=== PATIENT | female | born 1945 | race Caucasian/White ===

== ENCOUNTER 2018-05-17 20:08 | Observation (INO) | payer MEDICARE ==
[2018-05-17] MEDS ORDERED: MORPHINE SULFATE 4 MG/ML SYRINGE IVP PRN ×2 (20:49→22:42)
[2018-05-17] MEDS ORDERED: ASPIRIN 81 MG PO STA (20:49)
--- NOTE | 2018-05-17 20:52 | ED ---
General Adult HPI - General Chief complaint: Chest Pain Stated complaint: Chest pain Time Seen by Provider: 05/17/18 20:27 Source: patient Mode of arrival: wheelchair Limitations: no limitations - Related Data Home Medications Medication Instructions Recorded Confirmed DULoxetine HCL [Cymbalta] 60 mg PO DAILY 05/17/18 05/17/18 Hydrochlorothiazide [Hydrodiuril] 25 mg PO DAILY 05/17/18 05/17/18 Losartan Potassium 100 mg PO DAILY 05/17/18 05/17/18 Omeprazole Magnesium [PriLOSEC OTC] 20 mg PO DAILY 05/17/18 05/17/18 Pravastatin Sodium [Pravachol] 40 mg PO DAILY 05/17/18 05/17/18 Allergies Allergy/AdvReac Type Severity Reaction Status Date / Time No Known Allergies Allergy Verified 05/17/18 21:05 Review of Systems ROS Statement: Those systems with pertinent positive or pertinent negative responses have been documented in the HPI. ROS Other: All systems not noted in ROS Statement are negative. Past Medical History Past Medical History: Hypertension Additional Past Medical History / Comment(s): back pain History of Any Multi-Drug Resistant Organisms: None Reported Past Surgical History: Back Surgery Past Psychological History: No Psychological Hx Reported Smoking Status: Former smoker Past Alcohol Use History: None Reported Past Drug Use History: None Reported General Exam Limitations: no limitations Course Vital Signs 05/17/18 05/17/18 20:10 20:45 Temperature 98.4 F Pulse Rate 106 H 109 H Respiratory 18 22 Rate Blood Pressure 131/80 117/77 O2 Sat by Pulse 95 95 Oximetry Medical Decision Making - Medical Decision Making Dictation was produced using [employer] dictation software. please excuse any grammatical, word or spelling errors. Chief Complaint: 72-year-old female past medical history of chronic back pain, hypertension presents with chest pressure. History of Present Illness: States that her symptoms started yesterday. She states that she's been having episodes of chest pressure left shoulder pain and left upper extremity pain. Patient states she also feels nauseous. Patient denies any cardiac history. No family history of cardiac disease. No coughing. Denies any constitutional symptoms. Patient states she's having symptoms now. Patient has history of blood clots. Denies any lower extremity symptoms. The ROS documented in this emergency department record has been reviewed and confirmed by me. Those systems with pertinent positive or negative responses have been documented in the HPI. All other systems are other negative and/or noncontributory. PHYSICAL EXAM: General Impression: Alert and oriented x3, not in acute distress HEENT: Normocephalic atraumatic, extra-ocular movements intact, pupils equal and reactive to light bilaterally, mucous membranes moist. Cardiovascular: Heart regular rate and rhythm, S1&S2 audible, no murmurs, rubs or gallops Chest: Lungs clear to auscultation bilaterally, no rhonchi, no wheeze, no rales Abdomen: Bowel sounds present, abdomen soft, non-tender, non-distended, no organomegaly Musculoskeletal: Pulses present and equal in all extremities, no peripheral edema Motor: Power 5/5 bilaterally, no focal deficits noted Neurological: CN II-XII grossly intact, no focal motor or sensory deficits noted Skin: Intact with no visualized rashes Psych: Normal affect and mood ED course: 72yo Female presents with chief complaint of chest pain. Vital signs upon arrival shows heart rate of 106, rest of vital signs within acceptable limits.Laboratory evaluation obtained. CBC, coag panel, d-dimer is negative. Metabolic panel is unremarkable. Cardiac enzymes negative. Chest x- ray unremarkable. Patient's clinical presentation concerning for atypical chest pain with typical features. Patient given aspirin. We will plan to have patient admitted for serial troponins. EKG interpretation: Ventricular rate 100, normal sinus rhythm, TX interval 1:30 , QRS 76, QTC 443. No TX prolongation, no QTC prolongation, no ST or T-wave changes noted. Overall, this EKG is unremarkable - Lab Data Result diagrams: 05/17/18 20:50 05/17/18 20:50 Lab Results 05/17/18 05/17/18 05/17/18 Range/Units 20:50 20:50 20:50 WBC 4.5 (3.8-10.6) k/uL RBC 3.88 (3.80-5.40) m/uL Hgb 11.8 (11.4-16.0) gm/dL Hct 34.0 (34.0-46.0) % MCV 87.6 (80.0-100.0) fL MCH 30.4 (25.0-35.0) pg MCHC 34.7 (31.0-37.0) g/dL RDW 13.4 (11.5-15.5) % Plt Count 68 L (150-450) k/uL Neutrophils % 42 % Lymphocytes % 50 % Monocytes % 4 % Eosinophils % 2 % Basophils % 0 % Neutrophils # 1.9 (1.3-7.7) k/uL Lymphocytes # 2.3 (1.0-4.8) k/uL Monocytes # 0.2 (0-1.0) k/uL Eosinophils # 0.1 (0-0.7) k/uL Basophils # 0.0 (0-0.2) k/uL Manual Slide Review Performed PT (9.0-12.0) sec INR (<1.2) APTT (22.0-30.0) sec D-Dimer (<0.60) mg/L FEU Sodium 139 (137-145) mmol/L Potassium 3.6 (3.5-5.1) mmol/L Chloride 103 (98-107) mmol/L Carbon Dioxide 26 (22-30) mmol/L Anion Gap 10 mmol/L BUN 16 (7-17) mg/dL Creatinine 0.72 (0.52-1.04) mg/dL Est GFR (CKD-EPI)AfAm >90 (>60 ml/min/1.73 sqM) Est GFR (CKD-EPI)NonAf 86 (>60 ml/min/1.73 sqM) Glucose 205 H (74-99) mg/dL Calcium 9.4 (8.4-10.2) mg/dL Magnesium 1.9 (1.6-2.3) mg/dL Total Bilirubin 1.1 (0.2-1.3) mg/dL AST 19 (14-36) U/L ALT 27 (9-52) U/L Alkaline Phosphatase 101 (38-126) U/L Total Creatine Kinase 34 (30-135) U/L CK-MB (CK-2) 0.2 (0.0-2.4) ng/mL CK-MB (CK-2) Rel Index 0.6 Troponin I <0.012 (0.000-0.034) ng/mL Total Protein 7.3 (6.3-8.2) g/dL Albumin 4.0 (3.5-5.0) g/dL Lipase 53 (23-300) U/L 05/17/18 Range/Units 20:50 WBC (3.8-10.6) k/uL RBC (3.80-5.40) m/uL Hgb (11.4-16.0) gm/dL Hct (34.0-46.0) % MCV (80.0-100.0) fL MCH (25.0-35.0) pg MCHC (31.0-37.0) g/dL RDW (11.5-15.5) % Plt Count (150-450) k/uL Neutrophils % % Lymphocytes % % Monocytes % % Eosinophils % % Basophils % % Neutrophils # (1.3-7.7) k/uL Lymphocytes # (1.0-4.8) k/uL Monocytes # (0-1.0) k/uL Eosinophils # (0-0.7) k/uL Basophils # (0-0.2) k/uL Manual Slide Review PT 9.9 (9.0-12.0) sec INR 0.9 (<1.2) APTT 17.9 L (22.0-30.0) sec D-Dimer 0.46 (<0.60) mg/L FEU Sodium (137-145) mmol/L Potassium (3.5-5.1) mmol/L Chloride (98-107) mmol/L Carbon Dioxide (22-30) mmol/L Anion Gap mmol/L BUN (7-17) mg/dL Creatinine (0.52-1.04) mg/dL Est GFR (CKD-EPI)AfAm (>60 ml/min/1.73 sqM) Est GFR (CKD-EPI)NonAf (>60 ml/min/1.73 sqM) Glucose (74-99) mg/dL Calcium (8.4-10.2) mg/dL Magnesium (1.6-2.3) mg/dL Total Bilirubin (0.2-1.3) mg/dL AST (14-36) U/L ALT (9-52) U/L Alkaline Phosphatase (38-126) U/L Total Creatine Kinase (30-135) U/L CK-MB (CK-2) (0.0-2.4) ng/mL CK-MB (CK-2) Rel Index Troponin I (0.000-0.034) ng/mL Total Protein (6.3-8.2) g/dL Albumin (3.5-5.0) g/dL Lipase (23-300) U/L Disposition Clinical Impression: Chest pain Disposition: ADMITTED IP TO THIS HOSP Condition: Fair Referrals: Sergio Fleming MD [Primary Care Provider] - 1-2 days Decision Time: 22:44
[2018-05-17 21:26] LABS: Basophils % (A) 0 %; Eosinophils # (A) 0.1 k/uL (0-0.7); Eosinophils % (A) 2 %; HGB 11.8 gm/dL (11.4-16.0); Lymphocytes # (A) 2.3 k/uL (1.0-4.8); Lymphocytes % (A) 50 %; MCH 30.4 pg (25.0-35.0); MCHC 34.7 g/dL (31.0-37.0); MCV 87.6 fL (80.0-100.0); Mean Platelet Volume 6.7; Monocytes # (A) 0.2 k/uL (0-1.0); Monocytes % (A) 4 %; Neutrophils # (A) 1.9 k/uL (1.3-7.7); Neutrophils % (A) 42 %; RBC 3.88 m/uL (3.80-5.40); RDW 13.4 % (11.5-15.5); WBC 4.5 k/uL (3.8-10.6)
[2018-05-17 21:36] LABS: Creatine Kinase 34 U/L (30-135)
[2018-05-17 21:37] LABS: ALT 27 U/L (9-52); AST 19 U/L (14-36); Alkaline Phosphatase 101 U/L (38-126); Anion Gap 10 mmol/L; Blood Urea Nitrogen 16 mg/dL (7-17); Calcium 9.4 mg/dL (8.4-10.2); Carbon Dioxide 26 mmol/L (22-30); Chloride 103 mmol/L (98-107); Glucose 205 mg/dL (74-99); Lipase 53 U/L (23-300); Magnesium 1.9 mg/dL (1.6-2.3); Potassium 3.6 mmol/L (3.5-5.1); Sodium 139 mmol/L (137-145); Total Bilirubin 1.1 mg/dL (0.2-1.3); Total Protein 7.3 g/dL (6.3-8.2)
[2018-05-17 21:42] LABS: D-Dimer 0.46 mg/L FEU (<0.60); INR 0.9 (<1.2); Prothrombin Time 9.9 sec (9.0-12.0)
--- NOTE | 2018-05-17 21:42 | XR ---
EXAMINATION TYPE: XR chest 2V DATE OF EXAM: 05/17/2018 COMPARISON: NONE HISTORY: Chest pain TECHNIQUE: Frontal and lateral views of the chest are obtained. FINDINGS: Heart and mediastinum are normal. Lungs are clear of infiltrate. There is posterior fusion surgery at the thoracolumbar junction. There is neuro stimulator in the mid thoracic spine. There is no heart failure. There is no pleural effusion. IMPRESSION: No active cardiopulmonary disease. Normal heart. Minimal pleural thickening noted at the right lung apex.
[2018-05-17 21:50] LABS: Creatine Kinase MB 0.2 ng/mL (0.0-2.4); Troponin I <0.012 ng/mL (0.000-0.034)
[2018-05-17 21:54] LABS: Platelet Count 68 k/uL (150-450)
[2018-05-17 22:24] LABS: Partial Thromboplastin Time 17.9 sec (22.0-30.0)
[2018-05-17] MEDS ORDERED: NITROGLYCERIN SL TABS 0.4 MG TAB SUBLINGUAL PRN (22:46)
--- NOTE | 2018-05-18 00:40 | P.HPIM ---
History of Present Illness H&P Date: 05/17/18 Chief Complaint: Chest pain 72-year-old female with history of hypertension And back surgery. Patient presented with a complaint of left-sided chest pain radiating to the left shoulder and left arm. Pain started yesterday all of a sudden with no precipitating factors. Patient denies any history of anginal pain or any coronary artery disease. Pain initially was started was localized to the left chest and neck and then pain persisted all day ranging between 5-10 out of 10 in severity toward the night pain persisted and became worse when patient was laying down thus she preferred sitting up to get some comfort. Denies any associated orthopnea or paroxysmal maternal dyspnea denies any associated sweating or palpitations. This morning she felt that the pain has been radiating to the left arm and became associated with nausea and some dizziness and feeling dizzy and weak. Thus she decided to come and seek medical attention. Physical activity does not make the pain worse and actually pain gets worse when she lays down. She also reported some numbness in her left hand that has since gone otherwise patient denies any GI bleeding abdominal pain and vomiting fevers chills coughing or any trouble breathing. In the ED her EKG showed no acute ST changes, troponins are negative. Patient admitted for atypical chest pain to monitor and trend troponins Review of Systems Pertinent positives as noted in HPI. All other systems were reviewed and are negative Past Medical History Past Medical History: Hypertension Additional Past Medical History / Comment(s): back pain History of Any Multi-Drug Resistant Organisms: None Reported Past Surgical History: Back Surgery Past Psychological History: No Psychological Hx Reported Smoking Status: Former smoker Past Alcohol Use History: None Reported Past Drug Use History: None Reported Medications and Allergies Home Medications Medication Instructions Recorded Confirmed Type DULoxetine HCL [Cymbalta] 60 mg PO DAILY 05/17/18 05/17/18 History Hydrochlorothiazide [Hydrodiuril] 25 mg PO DAILY 05/17/18 05/17/18 History Losartan Potassium 100 mg PO DAILY 05/17/18 05/17/18 History Omeprazole Magnesium [PriLOSEC OTC] 20 mg PO DAILY 05/17/18 05/17/18 History Pravastatin Sodium [Pravachol] 40 mg PO DAILY 05/17/18 05/17/18 History Allergies Allergy/AdvReac Type Severity Reaction Status Date / Time No Known Allergies Allergy Verified 05/17/18 21:05 Physical Exam Vitals: Vital Signs Temp Pulse Resp BP Pulse Ox 05/17/18 23:05 85 18 107/61 95 05/17/18 22:00 91 18 109/65 95 05/17/18 20:45 109 H 22 117/77 95 05/17/18 20:10 98.4 F 106 H 18 131/80 95 Intake and Output 05/17/18 05/17/18 05/18/18 14:59 22:59 06:59 Other: Weight 88.451 kg Constitutional: No acute distress, conversant, pleasant Eyes: Anicteric sclerae, moist conjunctiva, no lid-lag Pupils equal round reactive to light ENMT: NC/AT Oropharynx clear, no erythema, exudates Neck: Supple, FROM, no masses, or JVD No carotid bruits No thyromegaly Lungs: Clear to auscultation Clear to percussion Normal respiratory effort, no accessory muscle use Cardiovascular: Heart regular in rate and rhythm, No murmurs, gallops, or rubs trace peripheral edema Abdominal: Soft Nontender, no guarding, rebound or rigidity Abdomen moving with respiration Normoactive bowel sounds No hepatomegaly, No splenomegaly No palpable mass No abdominal wall hernia noted Skin: Normal temperature, tone, texture, turgor No induration No subcutaneous nodules No rash, lesions No ulcers Extremities: No digital cyanosis No clubbing Pedal pulses intact and symmetrical Radial pulses intact and symmetrical No calf tenderness Psychiatric: Alert and oriented to person, place and time Appropriate affect fair judgment Neuro Muscles Strength 5/5 in all 4 extremities Sensation to light touch grossly present throughout Cranial nerves II-XII grossly intact No focal sensory deficits Lymphatics: no palpable cervical or supraclavicular , or inguinal lymph nodes Results CBC & Chem 7: 05/17/18 20:50 05/17/18 20:50 Labs: Abnormal Lab Results - Last 24 Hours (Table) 05/17/18 05/17/18 05/17/18 Range/Units 20:50 20:50 20:50 Plt Count 68 L (150-450) k/uL APTT 17.9 L (22.0-30.0) sec Glucose 205 H (74-99) mg/dL Assessment and Plan Assessment: 72-year-old female with history of hypertension and back surgery admitted as observation with anticipated length of stay less than 48 hours due to atypical chest pain to rule out ACS Plan: atypical chest pain , rule out ACS monitor cardiac tele and vital signs trend cardiac enzymes ASA, Statin EKG no acute changes bed rest pain control nitro prn Hypertension controlled continue home meds DVT PPX heparin sc tid RBC microcytosis without anemia outpatient follow up with PCP HIstory of back surgery follow up with ortho Dr. Rizvi as scheduled pain control Surrogate decision-maker Shanika granddaughter CODE STATUS:No code Discussed with: Patient, ER Anticipated discharge: <[address]: Home A total of 55 minutes was spent on the care of this complex patient more than 50 % of the time was spent in counseling and care coordination.
[2018-05-18] MEDS: KETOROLAC 30 MG/ML 1 ML VIAL IVP SCH ×3 (00:54→11:27)
[2018-05-18 03:27] LABS: Cholesterol 124 mg/dL (<200); HDL Cholesterol 30 mg/dL (40-60); LDL Cholesterol,Calculated 43 mg/dL (0-99); Triglycerides 256 mg/dL (<150)
[2018-05-18 03:28] LABS: Creatine Kinase 29 U/L (30-135)
[2018-05-18 03:41] LABS: Creatine Kinase MB <0.2 ng/mL (0.0-2.4); Troponin I <0.012 ng/mL (0.000-0.034)
[2018-05-18 07:29] VITALS: RESP 18
[2018-05-18] MEDS ORDERED: PANTOPRAZOLE 40 MG TABLET PO SCH (07:30)
[2018-05-18] MEDS ORDERED: HEPARIN SODIUM,PORCINE 5,000 UNIT/ML 1 ML VIAL SQ SCH (08:00)
[2018-05-18] MEDS ORDERED: HYDROCHLOROTHIAZIDE 25 MG TAB PO SCH (09:00)
[2018-05-18] MEDS ORDERED: LOSARTAN 50 MG TAB PO SCH (09:00)
[2018-05-18] MEDS ORDERED: ASPIRIN 325 MG TAB PO SCH (09:00)
[2018-05-18] MEDS ORDERED: PRAVASTATIN SODIUM 40 MG TAB PO SCH (09:00)
[2018-05-18] MEDS ORDERED: DULoxetine HCL 60 MG CAPSULE.DR PO SCH (09:00)
[2018-05-18] MEDS ORDERED: DOBUTamine DRIP for NUC MED 500 MG in DEXTROSE/WATER 1 250ML.BAG IV ONE (09:01)
--- NOTE | 2018-05-18 10:02 | P.CRDCN ---
History of Present Illness History of present illness: This is a pleasant 72-year-old female past medical history significant for hypertension, dyslipidemia, nicotine dependence. She denies history of coronary artery disease and is never seen a elevator serviceman for any reason. We've asked him in consultation for symptoms chest discomfort. She states Wednesday while she was at home sitting down she started feeling a heavy sensation in the left precordial region with radiation into the left shoulder, left neck and left jaw. The left arm felt heavy and tingly. The symptoms were rather persistent throughout the day Wednesday and were associated with some dizziness and nausea. She is recently seen her primary care physician and her blood pressure medications were increased by double for an elevated blood pressure while in the office. Upon arrival to the ED she was still having the pain. She was given aspirin and morphine. This relieved her pain almost entirely. She does continue to feel a dull ache in the left shoulder. Not worse with movement of her torso, arm or shoulder. Not worse with exertion. She denies shortness of breath, palpitations, nausea, vomiting or diaphoresis. EKG reveals sinus mechanism with no acute ST or T wave abnormalities noted 2. Chest x-ray is negative for acute cardiopulmonary process. Laboratory data reviewed, cardiac enzymes negative 2, LDL 43. Current cardiac medications include pravastatin 40 mg daily, losartan 100 mg daily and nitro chlorothiazide 25 mg daily. At the time of my exam: CONSTITUTIONAL: Denies fever. Denies chills. EYES: Denies blurred vision. Denies vision changes. Denies eye pain. EARS, NOSE, MOUTH & THROAT: Denies headache. Denies sore throat. Denies ear pain. CARDIOVASCULAR: Denies chest pain. Denies shortness of breath. Denies orthopnea. Denies PND. Denies palpitations. RESPIRATORY: Denies cough. GASTROINTESTINAL: Denies abdominal pain. Denies diarrhea. Denies constipation. Denies nausea. Denies vomiting. MUSCULOSKELETAL: Denies myalgias. INTEGUMENTARY: Denies pruitis. Denies rash. NEUROLOGIC: Denies numbness. Denies tingling. Denies weakness. PSYCHIATRIC: Denies anxiety. Denies depression. ENDOCRINE: Denies fatigue. Denies weight change. Denies polydipsia. Denies polyurina. GENITOURINARY: Denies burning, hematuria or urgency with micturation. HEMATOLOGIC: Denies history of anemia. Denies bleeding. Blood pressure 96/61 heart rate 84 afebrile maintaining oxygen saturation on room air GENERAL: This is a 72-year-old female in no apparent distress at the time of my examination. HEENT: Head is atraumatic, normocephalic. Pupils are equal, round. Sclerae anicteric. Conjunctivae are clear. Mucous membranes of the mouth are moist. Neck is supple. There is no jugular venous distention. No carotid bruit is heard. LUNGS: Clear to auscultation no wheezes, rales or rhonchi. No chest wall tenderness is noted on palpation or with deep breathing. HEART: Regular rate and rhythm without murmurs, rubs or gallops. S1 and S2 heard. ABDOMEN: Soft, nontender. Bowel sounds are heard. No organomegaly noted. EXTREMITIES: No evidence of peripheral edema and no calf tenderness noted. VASCULAR: Radial and dorsalis pedis pulses palpated, no evidence of clubbing. NEUROLOGIC: Patient is awake, alert and oriented x3. ASSESSMENT Chest pain, atypical. An acute coronary event has been ruled out. Hypertension Dyslipidemia Thrombocytopenia Chronic back pain PLAN Obtain 2D echocardiogram and doppler study to assess cardiac structure and function. Perform dobutamine stress echocardiogram to assess for stress induced ischemia. Recommend discontinuation of hydrochlorothiazide for blood pressures on the low side since admission. This could the cause of her dizziness. Advised her to obtain a blood pressure cuff for home and check her pressures daily and keep a log. If stress test is normal she is stable from a cardiac perspective. Follow up with Dr. Sanchez in 2-3 weeks for ongoing blood pressure management. Thank you kindly for this consultation. Nurse Practitioner note has been reviewed, I agree with a documented findings and plan of care. Patient was seen and examined. Past Medical History Past Medical History: Hypertension Additional Past Medical History / Comment(s): back pain History of Any Multi-Drug Resistant Organisms: None Reported Past Surgical History: Back Surgery Past Psychological History: No Psychological Hx Reported Smoking Status: Former smoker Past Alcohol Use History: None Reported Past Drug Use History: None Reported Medications and Allergies Home Medications Medication Instructions Recorded Confirmed Type DULoxetine HCL [Cymbalta] 60 mg PO DAILY 05/17/18 05/17/18 History Hydrochlorothiazide [Hydrodiuril] 25 mg PO DAILY 05/17/18 05/17/18 History Losartan Potassium 100 mg PO DAILY 05/17/18 05/17/18 History Omeprazole Magnesium [PriLOSEC OTC] 20 mg PO DAILY 05/17/18 05/17/18 History Pravastatin Sodium [Pravachol] 40 mg PO DAILY 05/17/18 05/17/18 History Allergies Allergy/AdvReac Type Severity Reaction Status Date / Time No Known Allergies Allergy Verified 05/17/18 21:05 Physical Exam Vitals: Vital Signs Temp Pulse Pulse Resp BP BP BP 05/18/18 07:27 98.3 F 76 18 109/70 05/18/18 03:54 84 16 05/18/18 03:49 98.4 F 84 16 96/61 05/18/18 00:09 16 05/18/18 00:00 98.4 F 81 16 104/68 05/17/18 23:56 98.1 F 81 16 110/66 05/17/18 23:05 85 18 107/61 05/17/18 22:00 91 18 109/65 05/17/18 20:45 109 H 22 117/77 05/17/18 20:10 98.4 F 106 H 18 131/80 Pulse Ox 05/18/18 07:27 95 05/18/18 03:54 05/18/18 03:49 97 05/18/18 00:09 05/18/18 00:00 96 05/17/18 23:56 95 05/17/18 23:05 95 05/17/18 22:00 95 05/17/18 20:45 95 05/17/18 20:10 95 Intake and Output 05/17/18 05/18/18 05/18/18 22:59 06:59 14:59 Intake Total 0 Balance 0 Intake: Oral 0 Other: Weight 88.451 kg Results 05/17/18 20:50 05/17/18 20:50 Cardiac Enzymes 05/17/18 05/17/18 05/18/18 Range/Units 20:50 20:50 03:04 AST 19 (14-36) U/L CK-MB (CK-2) 0.2 <0.2 (0.0-2.4) ng/mL Troponin I <0.012 <0.012 (0.000-0.034) ng/mL Coagulation 01/29/19 Range/Units 20:50 PT 9.9 (9.0-12.0) sec APTT 17.9 L (22.0-30.0) sec Lipids 05/18/18 Range/Units 03:04 Triglycerides 256 H (<150) mg/dL Cholesterol 124 (<200) mg/dL HDL Cholesterol 30 L (40-60) mg/dL CBC 05/17/18 Range/Units 20:50 WBC 4.5 (3.8-10.6) k/uL RBC 3.88 (3.80-5.40) m/uL Hgb 11.8 (11.4-16.0) gm/dL Hct 34.0 (34.0-46.0) % Plt Count 68 L (150-450) k/uL Comprehensive Metabolic Panel 05/17/18 Range/Units 20:50 Sodium 139 (137-145) mmol/L Potassium 3.6 (3.5-5.1) mmol/L Chloride 103 (98-107) mmol/L Carbon Dioxide 26 (22-30) mmol/L BUN 16 (7-17) mg/dL Creatinine 0.72 (0.52-1.04) mg/dL Glucose 205 H (74-99) mg/dL Calcium 9.4 (8.4-10.2) mg/dL AST 19 (14-36) U/L ALT 27 (9-52) U/L Alkaline Phosphatase 101 (38-126) U/L Total Protein 7.3 (6.3-8.2) g/dL Albumin 4.0 (3.5-5.0) g/dL Current Medications Generic Name Dose Route Start Last Admin Trade Name Freq PRN Reason Stop Dose Admin Aspirin 325 mg 05/18/18 09:00 Aspirin PO DAILY [facility] Duloxetine HCl 60 mg 05/18/18 09:00 Cymbalta PO DAILY [facility] Hydrochlorothiazide 25 mg 05/18/18 09:00 Hydrodiuril PO DAILY [facility] Ketorolac Tromethamine 15 mg 05/18/18 00:30 05/18/18 05:34 Toradol IVP 05/22/18 00:29 15 mg Q6HR NAVYA Administration Losartan Potassium 100 mg 05/18/18 09:00 Cozaar PO DAILY [facility] Morphine Sulfate 2 mg 05/17/18 20:49 05/17/18 20:56 Morphine Sulfate (Inj) IVP 2 mg ONCE PRN Administration Pain Morphine Sulfate 4 mg 05/17/18 22:42 Morphine Sulfate (Inj) IVP ONCE PRN Pain Nitroglycerin 0.4 mg 05/17/18 22:46 Nitrostat SUBLINGUAL Q5M PRN Chest Pain Pantoprazole Sodium 40 mg 05/18/18 07:30 Protonix PO AC-[id number] NAVYA Pravastatin Sodium 40 mg 05/18/18 09:00 Pravachol PO DAILY [facility] Intake and Output 05/17/18 05/18/18 05/18/18 22:59 06:59 14:59 Intake Total 0 Balance 0 Intake: Oral 0 Other: Weight 88.451 kg 05/17/18 20:50 05/17/18 20:50
--- NOTE | 2018-05-18 10:08 | P.CRDCN ---
History of Present Illness History of present illness: Patient reviewed and examined She's been complaining of left pectoral left shoulder discomfort that radiates into the neck and to the arm, lasted for several hours, normal cardiac enzymes normal ECG Takes losartan and hydrochlorothiazide and Pravachol 40 mrem daily Dose of losartan and hydrochlorothiazide was recently doubled. Blood pressure is low normal Suggest Stop hydrochlorothiazide, continue 100 mg of losartan, watch blood pressure Continue Pravachol Dobutamine stress echo to evaluate for ischemia Past Medical History Past Medical History: Hypertension Additional Past Medical History / Comment(s): back pain History of Any Multi-Drug Resistant Organisms: None Reported Past Surgical History: Back Surgery Past Psychological History: No Psychological Hx Reported Smoking Status: Former smoker Past Alcohol Use History: None Reported Past Drug Use History: None Reported Medications and Allergies Home Medications Medication Instructions Recorded Confirmed Type DULoxetine HCL [Cymbalta] 60 mg PO DAILY 05/17/18 05/17/18 History Hydrochlorothiazide [Hydrodiuril] 25 mg PO DAILY 05/17/18 05/17/18 History Losartan Potassium 100 mg PO DAILY 05/17/18 05/17/18 History Omeprazole Magnesium [PriLOSEC OTC] 20 mg PO DAILY 05/17/18 05/17/18 History Pravastatin Sodium [Pravachol] 40 mg PO DAILY 05/17/18 05/17/18 History Allergies Allergy/AdvReac Type Severity Reaction Status Date / Time No Known Allergies Allergy Verified 05/17/18 21:05 Physical Exam Vitals: Vital Signs Temp Pulse Pulse Resp BP BP BP 05/18/18 09:30 05/18/18 08:00 18 05/18/18 07:27 98.3 F 76 18 109/70 05/18/18 03:54 84 16 05/18/18 03:49 98.4 F 84 16 96/61 05/18/18 00:09 16 05/18/18 00:00 98.4 F 81 16 104/68 05/17/18 23:56 98.1 F 81 16 110/66 05/17/18 23:05 85 18 107/61 05/17/18 22:00 91 18 109/65 05/17/18 20:45 109 H 22 117/77 05/17/18 20:10 98.4 F 106 H 18 131/80 Pulse Ox 05/18/18 09:30 94 L 05/18/18 08:00 05/18/18 07:27 95 05/18/18 03:54 05/18/18 03:49 97 05/18/18 00:09 05/18/18 00:00 96 05/17/18 23:56 95 05/17/18 23:05 95 05/17/18 22:00 95 05/17/18 20:45 95 05/17/18 20:10 95 Intake and Output 05/17/18 05/18/18 05/18/18 22:59 06:59 14:59 Intake Total 0 Balance 0 Intake: Oral 0 Other: Weight 88.451 kg Results 05/17/18 20:50 05/17/18 20:50 Cardiac Enzymes 05/17/18 05/17/18 05/18/18 Range/Units 20:50 20:50 03:04 AST 19 (14-36) U/L CK-MB (CK-2) 0.2 <0.2 (0.0-2.4) ng/mL Troponin I <0.012 <0.012 (0.000-0.034) ng/mL Coagulation 05/17/18 Range/Units 20:50 PT 9.9 (9.0-12.0) sec APTT 17.9 L (22.0-30.0) sec Lipids 05/18/18 Range/Units 03:04 Triglycerides 256 H (<150) mg/dL Cholesterol 124 (<200) mg/dL HDL Cholesterol 30 L (40-60) mg/dL CBC 05/17/18 Range/Units 20:50 WBC 4.5 (3.8-10.6) k/uL RBC 3.88 (3.80-5.40) m/uL Hgb 11.8 (11.4-16.0) gm/dL Hct 34.0 (34.0-46.0) % Plt Count 68 L (150-450) k/uL Comprehensive Metabolic Panel 05/17/18 Range/Units 20:50 Sodium 139 (137-145) mmol/L Potassium 3.6 (3.5-5.1) mmol/L Chloride 103 (98-107) mmol/L Carbon Dioxide 26 (22-30) mmol/L BUN 16 (7-17) mg/dL Creatinine 0.72 (0.52-1.04) mg/dL Glucose 205 H (74-99) mg/dL Calcium 9.4 (8.4-10.2) mg/dL AST 19 (14-36) U/L ALT 27 (9-52) U/L Alkaline Phosphatase 101 (38-126) U/L Total Protein 7.3 (6.3-8.2) g/dL Albumin 4.0 (3.5-5.0) g/dL Current Medications Generic Name Dose Route Start Last Admin Trade Name Freq PRN Reason Stop Dose Admin Duloxetine HCl 60 mg 05/18/18 09:00 Cymbalta PO DAILY [facility] Dobutamine HCl/Dextrose 500 mg 250 mls @ 26.53 mls/hr 05/18/18 09:01 / IV Solution IV 05/18/18 18:26 .[id number] ONE Protocol 10 MCG/KG/MIN Ketorolac Tromethamine 15 mg 05/18/18 00:30 05/18/18 05:34 Toradol IVP 05/22/18 00:29 15 mg Q6HR NAVYA Administration Losartan Potassium 100 mg 05/18/18 09:00 Cozaar PO DAILY [facility] Morphine Sulfate 2 mg 05/17/18 20:49 05/17/18 20:56 Morphine Sulfate (Inj) IVP 2 mg ONCE PRN Administration Pain Morphine Sulfate 4 mg 05/17/18 22:42 Morphine Sulfate (Inj) IVP ONCE PRN Pain Nitroglycerin 0.4 mg 05/17/18 22:46 Nitrostat SUBLINGUAL Q5M PRN Chest Pain Pantoprazole Sodium 40 mg 05/18/18 07:30 Protonix PO AC-BRKFST [facility] Pravastatin Sodium 40 mg 05/18/18 09:00 Pravachol PO DAILY [facility] Intake and Output 05/17/18 05/18/18 05/18/18 22:59 06:59 14:59 Intake Total 0 Balance 0 Intake: Oral 0 Other: Weight 88.451 kg 05/17/18 20:50 05/17/18 20:50
[2018-05-18 11:38] VITALS: BP 122/74; PULSE 87; TEMP 98.2
--- NOTE | 2018-05-18 11:44 | ECHOF ---
Referral Reason:cp MEASUREMENTS -------- HEIGHT: 165.1 cm WEIGHT: 88.5 kg BP: 109/70 RVIDd: 2.9 cm (< 3.3) IVSd: 1.0 cm (0.6 - 1.1) LVIDd: 4.1 cm (3.9 - 5.3) LVPWd: 1.0 cm (0.6 - 1.1) IVSs: 1.6 cm LVIDs: 2.7 cm LVPWs: 1.3 cm LA Diam: 3.2 cm (2.7 - 3.8) LAESV Index (A-L): 21.81 ml/m Ao Diam: 3.3 cm (2.0 - 3.7) AV Cusp: 2.3 cm (1.5 - 2.6) EPSS: 0.3 cm MV E Kaiser: 0.73 m/s MV DecT: 231 ms MV A Kaiser: 0.87 m/s MV E/A Ratio: 0.84 RAP: 5.00 mmHg RVSP: 19.57 mmHg MV EF SLOPE: 120.78 mm/s (70 - 150) MV EXCURSION: 1.77 cm (> 18.000) FINDINGS -------- Sinus rhythm. This was a technically good study. The left ventricular size is normal. Left ventricular wall thickness is normal. Overall left vent ricular systolic function is normal with, an EF between 60 - 65 %. The right ventricle is normal in size. Normal LA size by volume 22+/-6 ml/m2. The right atrium is normal in size. The aortic valve is trileaflet and appears structurally normal. There is trace to mild mitral regurgitation. Mild tricuspid regurgitation present. Right ventricular systolic pressure is normal at < 35 mmHg. Trace/mild (physiologic) pulmonic regurgitation. The aortic root size is normal. Normal inferior vena cava with normal inspiratory collapse consistent with estimated right atrial pre ssure of 5 mmHg. There is no pericardial effusion. CONCLUSIONS -------- 1. Sinus rhythm. 2. This was a technically good study. 3. The left ventricular size is normal. 4. Left ventricular wall thickness is normal. 5. Overall left ventricular systolic function is normal with, an EF between 60 - 65 %. 6. The right ventricle is normal in size. 7. Normal LA size by volume 22+/-6 ml/m2. 8. The right atrium is normal in size. 9. The aortic valve is trileaflet and appears structurally normal. 10. There is trace to mild mitral regurgitation. 11. Mild tricuspid regurgitation present. 12. Right ventricular systolic pressure is normal at < 35 mmHg. 13. Trace/mild (physiologic) pulmonic regurgitation. 14. The aortic root size is normal. 15. Normal inferior vena cava with normal inspiratory collapse consistent with estimated right atrial pressure of 5 mmHg. 16. There is no pericardial effusion. [employer] SALES ASSISTANT: VANESSA Sellers
--- NOTE | 2018-05-18 12:54 | P.DS ---
Providers Date of admission: 05/17/18 22:44 Expected date of discharge: 05/18/18 Attending physician: Grace Medrano MD Consults: 05/17/18 23:42 Consult Physician Routine Consulting Provider: Adela Mistry Consult Reason/Comments: chest pain Do you want consulting provider notified?: Yes, Notify in am Primary care physician: [facility] Course: 72-year-old female with history of hypertension And back surgery. Patient presented with a complaint of left-sided chest pain radiating to the left shoulder and left arm. Pain started yesterday all of a sudden with no precipitating factors. Patient denies any history of anginal pain or any coronary artery disease. Pain initially was started was localized to the left chest and neck and then pain persisted all day ranging between 5-10 out of 10 in severity toward the night pain persisted and became worse when patient was laying down thus she preferred sitting up to get some comfort. Denies any associated orthopnea or paroxysmal maternal dyspnea denies any associated sweating or palpitations. This morning she felt that the pain has been radiating to the left arm and became associated with nausea and some dizziness and feeling dizzy and weak. Thus she decided to come and seek medical attention. Physical activity does not make the pain worse and actually pain gets worse when she lays down. She also reported some numbness in her left hand that has since gone otherwise patient denies any GI bleeding abdominal pain and vomiting fevers chills coughing or any trouble breathing. With regard to her chest pain, troponin was less than 0.0122 with EKG showing normal sinus rhythm. Echocardiogram was done which showed an ejection fraction of 60-65% with normal wall motions. Cardiology was consulted and recommended stress test. Stress test was negative. Patient was seen and examined prior to discharge. No acute events overnight. Patient reports complete resolution of her chest pain. She is looking for to going home. General: [no distress], [appears at stated age] Derm: [warm], [dry] Head: [atraumatic], [normocephalic], [symmetric] Eyes: [EOMI], [no lid lag], [anicteric sclera] Mouth: [no lip lesion], [mucus membranes moist] Cardiovascular: [S1S2 reg], [no murmur], [positive posterior tibial pulse bilateral], Lungs: [CTA bilateral], [no rhonchi, no rales] , [no accessory muscle use] Abdominal: [soft], [ nontender to palpation], [no guarding], [no appreciable organomegaly] Ext: [no gross muscle atrophy], [no edema], [no contractures] Neuro: [no focal neuro deficits] Psych: [Alert], [oriented], [appropriate affect] Assessment and Plan 1. Chest pain 2. Hypertension 3. Thrombocytopenia Acute coronary syndrome has been ruled out. Troponins have been negative 2, echocardiogram and stress test are both within normal limits. Lipid panel shows an elevated triglyceride at 256 and a decreased HDL at 30. Patient has been instructed by cardiology to discontinue hydrochlorothiazide and continue losartan 100 mg by mouth daily. Patient has been advised to follow-up with her primary care provider within 1-2 days of discharge. Patient was advised follow- up with cardiology Dr. Sanchez within 3 weeks of discharge. Pertinent Studies: Chest x-ray Echocardiogram Stress test Patient Condition at Discharge: Stable Plan - Discharge Summary New Discharge Prescriptions: Continue Pravastatin Sodium [Pravachol] 40 mg PO DAILY Losartan Potassium 100 mg PO DAILY DULoxetine HCL [Cymbalta] 60 mg PO DAILY Omeprazole Magnesium [PriLOSEC OTC] 20 mg PO DAILY Discontinued Hydrochlorothiazide [Hydrodiuril] 25 mg PO DAILY Discharge Medication List DULoxetine HCL [Cymbalta] 60 mg PO DAILY 05/17/18 [History] Losartan Potassium 100 mg PO DAILY 05/17/18 [History] Omeprazole Magnesium [PriLOSEC OTC] 20 mg PO DAILY 05/17/18 [History] Pravastatin Sodium [Pravachol] 40 mg PO DAILY 05/17/18 [History] Follow up Appointment(s)/Referral(s): Shravan Sanchez MD [STAFF PHYSICIAN] - 3 Weeks Sergio Fleming MD [Primary Care Provider] - 1-2 days Activity/Diet/Wound Care/Special Instructions: Diet: HEART healthy Please follow-up with her primary care provider within 1-2 days of discharge. Please follow-up with your edge kitter within 3 weeks of discharge. Discharge Disposition: HOME SELF-CARE
--- NOTE | 2018-05-19 22:14 | ECHOS ---
STRESS ECHOCARDIOGRAM INDICATIONS: MEDICATIONS: Pravastatin, sodium, losartan, potassium, hydrochlorothiazide, omeprazole, duloxetine BASELINE HEART RATE: 73 BASELINE BLOOD PRESSURE: 118/72 MAXIMUM HEART RATE: 129 MAXIMUM BLOOD PRESSURE: 220/35 85% MPHR: 128 100% MPHR: 150 METS: MAXIMUM STAGE REACHED: TOTAL EXERCISE TIME: 7:30 CLINICAL INFORMATION: This is a dobutamine stress echo. Baseline heart rate 73 beats per minute. Baseline blood pressure 118/72 mmHg. The patient received dobutamine infusion per protocol. Peak heart rate 129 beats per minute. Peak blood pressure 220 systolic. Baseline 12- lead ECG shows normal sinus rhythm with normal cardiac intervals, normal ST segments. There was no ECG evidence for ischemia. No arrhythmias noted. The baseline 2D echo images showed normal LV size and systolic function without segmental wall motion abnormalities. With dobutamine infusion, there was a stepwise increment in overall LV contractility without development of any wall motion abnormalities. At recovery, regional global LV systolic function remained normal. IMPRESSION: No ECG or echocardiographic evidence for ischemia during dobutamine stress echo. MMODL / IJN: [id number] /
== END 2018-05-18 13:43 | disposition home or self-care (01) ==
LOC: EC 20:08 → 1SOBS 22:44
PROVIDERS: ADMIT Internal Medicine; ATTEND Internal Medicine
DX: R07.89 Other chest pain (principal); R11.0 Nausea; R42 Dizziness and giddiness; R53.1 Weakness; D69.6 Thrombocytopenia, unspecified; I10 Essential (primary) hypertension; E78.5 Hyperlipidemia, unspecified; Z86.718 Personal history of other venous thrombosis and embolism; Z98.890 Other specified postprocedural states; G89.29 Other chronic pain; M54.9 Dorsalgia, unspecified; Z87.891 Personal history of nicotine dependence; Z79.899 Other long term (current) drug therapy
CPT/HCPCS: 96374; 96375; 96376; 99285; 36415; 93005; 93306; 93351; 85379; 80061; 80053; 82550 ×2; 82553 ×2; 83690; 83735; 84484 ×2; 85025; 85610; 85730; 71046; G0378 ×2; J1250; J2270; J1885

== ENCOUNTER → 2018-05-23 | Outpatient (CLI) | payer MEDICARE ==
--- NOTE | 2018-05-23 14:03 | CT ---
EXAMINATION TYPE: CT lumbar spine wo con DATE OF EXAM: 05/23/2018 1:49 PM COMPARISON: HISTORY: Postlaminectomy back pain. Left hip pain. CT DLP: 1434.2 mGycm Automated exposure control for dose reduction was used. TECHNIQUE: Unenhanced CT of the lumbar spine was performed. Bone and soft tissue window settings are submitted as well as coronal and sagittal reconstructions. FINDINGS: There is diffuse osseous demineralization. There is a levoscoliotic curvature of the lumbar spine and very mild compression deformity of the L1 vertebral body. There are flowing bridging anter ior osteophytes. Postsurgical changes seen from T11 through S1 as well as of the sacroiliac joints wi th resection of the posterior elements, pedicular screws and fixation rods. Anterior vertebral body s crews are also seen of L5-S1, L3, and L4. Intervertebral disc spacers are present at L4-L5 and L5-S1. Near complete osseous fusion is seen at L2-L3, L3-L4, L4-5 and L5-S1. Extensive heterotopic ossifica tion and facet arthropathy are noted of the lower lumbar spine. There is postsurgical change at the gastroesophageal junction. Moderate atherosclerosis of the abdomi nal aorta and its branches. Numerous sigmoid diverticula are partially visualized. Cholelithiasis is seen. Mild hepatic steatosis is noted. Nerve stimulator is seen within the right gluteal soft tissues . The entrance point of this nerve stimulator is not visualized as it appears to be within the thorac ic spine. Although there is postsurgical change limiting evaluation of the neural foramen there appears to be n eural foraminal narrowing at L5-S1 on the left that is overall moderate. The remainder of the neural foramen are grossly patent on CT. There also appears to be mild spinal canal stenosis at L4-L5 due to facet arthropathy and ligamentum flavum hypertrophy. IMPRESSION: 1. Extensive postsurgical change of the thoracolumbar spine and sacroiliac joints. Multilevel osseous fusion is seen at although there is limited visualization due to extensive surgical hardware there a ppears to be mild spinal canal stenosis at L4-L5 and moderate neural foraminal narrowing at L5-S1 on the left. 2. Levoscoliosis of the lumbar spine and partially visualized dextroscoliosis of the thoracic spine. 3. Generalized osseous demineralization.
== END | disposition home or self-care (01) ==
LOC: RADCTMAIN 13:25
DX: M48.07 Spinal stenosis, lumbosacral region (principal); M41.86 Other forms of scoliosis, lumbar region; M81.0 Age-related osteoporosis without current pathological fracture; Z98.1 Arthrodesis status; Z98.890 Other specified postprocedural states
CPT/HCPCS: 72131

== ENCOUNTER → 2018-09-16 | Outpatient (CLI) | payer MEDICARE ==
--- NOTE | 2018-09-16 14:35 | CT ---
EXAMINATION TYPE: CT cervical spine wo con DATE OF EXAM: 09/16/2018 COMPARISON: None HISTORY: headaches CT DLP: 604 mGycm Automated exposure control for dose reduction was used. TECHNIQUE: CT scan of the cervical spine is obtained without contrast, axial images are obtained, sa gittal and coronal reformatted images are also reviewed. FINDINGS: There is some straightening of the cervical spine. There is degenerative disc space narrowi ng at C5-6 C6-7 with spurring of the endplates. There is hypertrophic multilevel cervical facet arthr opathy. There is narrowing of C3-4 disc space. There is fusion of the left side facet joint at C3-4. The skull base is intact. There is no cervical paraspinal mass. There is 6 x 4 mm calcification in th e spinal canal posteriorly on the left side consistent with ligamentous calcification involving ligam entum flavum at the C7 level. I see no significant spinal stenosis. IMPRESSION: Multilevel spondylotic changes with straightening. No fracture. No acute bony abnormality .
== END | disposition home or self-care (01) ==
LOC: RADCTMAIN 13:31
PROVIDERS: ATTEND Internal Medicine
DX: M47.812 Spondylosis without myelopathy or radiculopathy, cervical region (principal)
CPT/HCPCS: 72125

== ENCOUNTER → 2021-05-23 | Outpatient (CLI) | payer MEDICARE ==
[2021-05-23 19:49] LABS: Basophils # (A) 0.08 X 10*3/uL (0.00-0.10); Basophils % (A) 1.1 %; Eosinophils # (A) 0.13 X 10*3/uL (0.04-0.35); Eosinophils % (A) 1.8 %; HCT 38.6 % (37.2-46.3); HGB 12.7 g/dL (12.0-15.0); Lymphocytes # (A) 3.01 X 10*3/uL (0.90-5.00); Lymphocytes % (A) 41.6 %; MCH 29.7 pg (27.0-32.0); MCHC 32.9 g/dL (32.0-37.0); MCV 90.4 fL (80.0-97.0); Mean Platelet Volume 10.7 fL (9.5-12.2); Monocytes % (A) 6.9 %; Neutrophils # (A) 3.51 X 10*3/uL (1.80-7.70); Neutrophils % (A) 48.5 %; Platelet Count 330 X 10*3/uL (140-440); RBC 4.27 X 10*6/uL (4.10-5.20); RDW 13.1 % (11.5-14.5); WBC 7.24 X 10*3/uL (4.50-10.00)
[2021-05-23 20:49] LABS: Anion Gap 12.7 mmol/L (10.00-18.00); Potassium 4.3 mmol/L (3.5-5.5)
== END | disposition home or self-care (01) ==
LOC: LABPAT 12:48
PROVIDERS: ATTEND Orthopaedic Surgery
DX: Z01.812 Encounter for preprocedural laboratory examination (principal); M23.91 Unspecified internal derangement of right knee
CPT/HCPCS: 36415; 80051; 85025

== ENCOUNTER 2021-05-29 11:49 | Day surgery (SDC) | payer MEDICARE ==
[2021-05-26 16:45] VITALS: BMI 29.9
--- NOTE | 2021-05-28 20:21 | HP ---
HISTORY AND PHYSICAL DATE OF SURGERY: 05/29/2021 Deepthi Echavarria is a 75-year-old patient seen with progressive right knee pain. We discussed options for treatment. She elected to proceed with right knee arthroscopy. Consent was obtained. PAST MEDICAL HISTORY: Hypertension, yba-ymdchdn-[id number] diabetes, hyperlipidemia. PAST SURGICAL HISTORY: Hysterectomy, back surgery. DAILY MEDICATIONS: Hydrochlorothiazide, losartan, metformin, omeprazole, pravastatin. ALLERGIES: NONE REPORTED. SOCIAL HISTORY: She denies tobacco use. PHYSICAL EVALUATION OF THE RIGHT KNEE: Range of motion is zero to 125. Mild effusion. Tenderness, medial joint line. Positive medial Meme's. Ligaments stable. Hip rotation without pain. Distal neurovascular exam is intact. Radiographs of the right knee revealed mild to moderate osteoarthritic changes. IMPRESSION: 1. Internal derangement of right knee with medial meniscal tear. 2. Hypertension. 3. Hyperlipidemia. 4. Zlu-zqsvtea-ysifzrzmu diabetes. PLAN: Right knee arthroscopy with partial meniscectomy and debridement. MMODL / IJN: [id number] /
[~2021-05-29 11:49] MED LIST: DEXAMETHASONE SOD PHOSPHATE 4 MG/ML 1 ML VIAL IV ONE; LACTATED RINGERS 1,000 ML IV SCH; LIDOCAINE 1% (10MG/ML) FOR IV START INTRADERMA PRN; ONDANSETRON 4 MG/2 ML VIAL IVP ONE
[2021-05-29 12:37] LABS: Glucose,Whole Blood 130 mg/dL (75-99)
[2021-05-29] MEDS ORDERED: SUCCINYLCHOLINE CHLORIDE 100 MG/5 ML SYR IV ONE (13:06)
[2021-05-29] MEDS ORDERED: fentaNYL (PF) 50 MCG/ML 2 ML AMP ONE (13:06)
[2021-05-29] MEDS ORDERED: LIDOCAINE 1% INJ 10MG/ML (20 ML MDV) ONE (13:06)
[2021-05-29] MEDS ORDERED: MIDAZOLAM 2 MG/2 ML VIAL ONE (13:06)
[2021-05-29] MEDS ORDERED: PROPOFOL 10 MG/ML 20 ML VIAL IV ONE (13:06)
[2021-05-29] MEDS ORDERED: BUPIVACAINE (PF) 0.25% 30 ML VIAL SQ ONE ×2 (13:24→13:36)
--- NOTE | 2021-05-29 13:50 | P.OP ---
Date of Procedure: 05/29/21 Preoperative Diagnosis: Internal derangement right knee Postoperative Diagnosis: 1. Tear medial meniscus right knee 2. Grade 3 chondromalacia medial femoral condyle right knee 3. Reactive synovitis medial, lateral and suprapatellar compartments right knee Procedure(s) Performed: 1. Arthroscopic partial medial meniscectomy right knee 2. Arthroscopic partial synovectomy medial, lateral and suprapatellar compartments right knee 3. Arthroscopic chondroplasty medial femoral condyle right knee Anesthesia: KATELYNA, local Surgeon: Shay Reyes Estimated Blood Loss (ml): 7 Pathology: none sent Condition: stable Disposition: PACU Indications for Procedure: 75-year-old patient seen with progressive right knee pain. After treatment options were discussed, she elected to proceed with arthroscopy. Operative Findings: See description of procedure Description of Procedure: Patient was taken to the operative suite. Patient underwent a general anesthetic by the department of anesthesia. Patient was given preoperative antibiotics. The right lower extremity was placed in a well-padded arthroscopic leg olivarez. The right leg was prepped and draped in the normal sterile orthopedic fashion. A lateral parapatellar and suprapatellar incision was made. Trochars were inserted. Arthroscopy was initiated. Suprapatellar pouch revealed diffuse thick reactive synovitis. The patellofemoral joint appeared articulate congruently. There was grade 2/3 chondromalacia of the patella with no osteochondral tears present. The scope was guided into the medial gutter. No loose bodies or plica were identified. The scope was then guided into the medial compartment. A medial parapatellar incision was made. Trocar inserted followed by probe. There was a complex tear involving the mid body and posterior horn medial meniscus. There was thick reactive some-itis anteriorly. There were grade 3 chondromalacia changes of the medial femoral condyle with some osteochondral flap tears present. There was thick reactive synovitis anteriorly. Scope and probe were then guided into the intercondylar notch. Cruciates were identified, probed and found to be stable. The scope and probe were then guided into lateral compartment. Lateral meniscus was probed and was found to be stable. There were grade 1 chondromalacia changes lateral compartment with no tears. There was some thick reactive synovitis anteriorly. I introduced a motorized shaver and performed a partial synovectomy. Shaver was removed. There was good decompression of synovitis. The scope was in guided back into the suprapatellar compartment. I introduced a motorized shaver into the suprapatellar compartment. I debrided some piecemeal fragments of meniscus that I encountered. I performed a partial synovectomy. Shaver was removed. There was good decompression of synovitis. I took one more look on the entire knee, no residual debris. Instruments were now removed from the joint. The joint was infiltrated with .25% Marcaine. Steri-Strips were applied to the portal sites. Sterile dressings were applied. The patient was placed into a DAHIANA hose. No tourniquet was utilized. The patient was awakened, transferred to a bed and taken to recovery stable satisfactory condition.
[2021-05-29 13:51] LABS: Glucose,Whole Blood 116 mg/dL (75-99)
[2021-05-29 13:52] VITALS: TEMP 96.8
[2021-05-29] MEDS: HYDROmorphone 0.5 MG/0.5 ML SYRINGE IVP PRN ×2 (13:53→14:12)
[2021-05-29] MEDS ORDERED: KETOROLAC 15 MG/ML 1 ML VIAL IVP ONE (14:07)
[2021-05-29 14:39] VITALS: BP 133/79; PULSE 86; RESP 20
[2021-05-29] MEDS ORDERED: traMADol 50 MG TAB ONE (14:44)
== END 2021-05-29 15:45 | disposition home or self-care (01) ==
LOC: OR 11:49
PROVIDERS: ATTEND Orthopaedic Surgery
DX: M23.91 Unspecified internal derangement of right knee (principal); M23.203 Derangement of unspecified medial meniscus due to old tear or injury, right knee; M94.261 Chondromalacia, right knee; M65.861 Other synovitis and tenosynovitis, right lower leg; I10 Essential (primary) hypertension; E11.9 Type 2 diabetes mellitus without complications; E78.5 Hyperlipidemia, unspecified; Z90.710 Acquired absence of both cervix and uterus; Z98.890 Other specified postprocedural states; K21.9 Gastro-esophageal reflux disease without esophagitis; Z79.1 Long term (current) use of non-steroidal anti-inflammatories (NSAID); Z79.84 Long term (current) use of oral hypoglycemic drugs; Z79.899 Other long term (current) drug therapy
CPT/HCPCS: 29881; 29876; J2250; J1100; J0690; J2405; J2001; J3010; J1885; J0330; J2704; J1170

== ENCOUNTER 2022-12-09 07:26 | Day surgery (SDC) | payer MEDICARE ==
[2022-12-08 08:43] VITALS: BMI 28.3
[~2022-12-09 07:26] MED LIST changes: -DEXAMETHASONE SOD PHOSPHATE 4 MG/ML 1 ML VIAL IV ONE; -LIDOCAINE 1% (10MG/ML) FOR IV START INTRADERMA PRN; -ONDANSETRON 4 MG/2 ML VIAL IVP ONE
[2022-12-09 08:00] VITALS: RESP 16; TEMP 98.2
[2022-12-09 08:20] LABS: Glucose,Whole Blood 97 mg/dL (70-110)
[2022-12-09] MEDS ORDERED: LACTATED RINGERS 1,000 ML IV ONE (08:21)
[2022-12-09] MEDS ORDERED: PROPOFOL 10 MG/ML 20 ML VIAL IV ONE (08:57)
[2022-12-09] MEDS ORDERED: LIDOCAINE 2% INJ 20 MG/ML (2 ML VIAL) ONE (08:57)
--- NOTE | 2022-12-09 09:13 | P.PCN ---
Date of Procedure: 12/09/22 Procedure(s) Performed: BRIEF HISTORY: Patient is a 77-year-old pleasant white white female scheduled for an elective colonoscopy as a part of gaining for colon cancer and family history of colon cancer. Her mother was diagnosed with colon cancer at age 78. PROCEDURE PERFORMED: Colonoscopy with snare polypectomy. PREOPERATIVE DIAGNOSIS: Screening for colon cancer and family history of colon cancer. IV sedation per Anesthesia. PROCEDURE: After informed consent was obtained, the patient, was brought into the endoscopy unit. IV sedation was administered by Anesthesia under continuous monitoring. Digital rectal examination was normal. Initially the Olympus CF-160 flexible video colonoscope was then inserted in the rectum, gradually advanced into the cecum without any difficulty. Careful examination was performed as the scope was gradually being withdrawn. Ileocecal valve and the appendiceal orifice were visualized and appeared normal. Prep was excellent. Mucosa of the cecum, ascending colon, appeared normal. in the transverse colon there was a 5 mm polyp removed by cold snare polypectomy. Rest of the transverse colon, descending colon, sigmoid colon, and rectum appeared normal. Scattered sigmoid diverticulosis. Retroflexion was performed in the rectum and no lesions were seen. The patient tolerated the procedure well. IMPRESSION: 5 mm transverse colon polyp status post cold snare polypectomy Scattered sigmoid diverticulosis Rest of the colon RECOMMENDATIONS: Findings of this examination were discussed with the patient as well as a family. She was advised to follow with the biopsy results and have a repeat colonoscopy in 5 years from now because of the family history of colon cancer.
[2022-12-09 09:39] VITALS: BP 112/66; PULSE 66
== END 2022-12-09 09:48 | disposition home or self-care (01) ==
LOC: ORWHC2ENDO 07:26
PROVIDERS: ATTEND Internal Medicine Gastroenterology
DX: Z12.11 Encounter for screening for malignant neoplasm of colon (principal); K57.30 Diverticulosis of large intestine without perforation or abscess without bleeding; D12.3 Benign neoplasm of transverse colon; I10 Essential (primary) hypertension; E78.5 Hyperlipidemia, unspecified; E11.9 Type 2 diabetes mellitus without complications; Z80.0 Family history of malignant neoplasm of digestive organs; Z79.84 Long term (current) use of oral hypoglycemic drugs; Z79.899 Other long term (current) drug therapy; Z85.3 Personal history of malignant neoplasm of breast; Z98.890 Other specified postprocedural states
CPT/HCPCS: 88305; 45385; J2704; J2001

== ENCOUNTER → 2023-05-19 | Outpatient (CLI) | payer MEDICARE ==
--- NOTE | 2023-05-19 09:16 | US ---
EXAMINATION TYPE: US abdomen limited DATE OF EXAM: 05/19/2023 COMPARISON: NONE CLINICAL INDICATION: Female, 77 years old with history of R10.11 RIGHT UPPER QUADRANT PAIN; RUQ pain for about a month. Pain comes and goes. Patient states that she also has nausea. TECHNIQUE: Multiple sonographic images of the right upper quadrant are obtained. FINDINGS: EXAM MEASUREMENTS: Liver Length: 17.6 cm Gallbladder Wall: 0.2 cm CBD: 0.5 cm Right Kidney: 8.4 x 4.3 x 4.0 cm [employer] TECHNICIAN NOTES: Limited visualization due to overlying bowel gas and patient body habitus Pancreas: Obscured by bowel gas Liver: wnl as best visualized. Posterior aspect obscured by gas. Gallbladder: multiple, small, mobile echogenic foci seen Evidence for sonographic Goldman's sign: No CBD: wnl as best visualized. Right Kidney: No hydronephrosis or masses seen as best visualized. IMPRESSION: Uncomplicated cholelithiasis.
[2023-05-19 16:05] LABS: HGB 11.7 g/dL (12.0-15.0); MCH 30.9 pg (27.0-32.0); MCHC 30.8 g/dL (32.0-37.0); MCV 100.3 FL (80.0-97.0); Mean Platelet Volume 11.4 FL (9.5-12.2); NRBC Per 100 WBC 0 X 10*3/uL (0.00-0.01); Platelet Count 229 X 10*3/uL (140-440); RBC 3.79 X 10*6/uL (4.10-5.20); RDW 13.2 % (11.5-14.5); WBC 4.74 X 10*3/uL (4.50-10.00)
[2023-05-19 17:11] LABS: Blood Urea Nitrogen 22.6 mg/dL (9.0-27.0); Calcium 9.4 mg/dL (8.7-10.3); Carbon Dioxide 23.5 mmol/L (21.6-31.8); Chloride 118 mmol/L (96-109); Glucose 96 mg/dL (70-110); Potassium 3.9 mmol/L (3.5-5.5); Sodium 156 mmol/L (135-145)
== END | disposition home or self-care (01) ==
LOC: RADUSWWP 08:32
PROVIDERS: ATTEND Internal Medicine Gastroenterology
DX: R10.11 Right upper quadrant pain (principal)
CPT/HCPCS: 36415; 76705; 80048; 85027

== ENCOUNTER 2023-05-20 13:43 | Observation (INO) | payer MEDICARE ==
--- NOTE | 2023-05-20 14:13 | ED ---
Abdominal Pain HPI - General Source: patient, RN notes reviewed Mode of arrival: ambulatory Limitations: no limitations <Regi Camacho - Last Filed: 05/20/23 14:12> <Meet Rahman - Last Filed: 05/20/23 18:41> - General Chief Complaint: Abdominal Pain Stated Complaint: Back pain Time Seen by Provider: 05/20/23 14:12 - History of Present Illness Initial Comments: Patient is a 77-year-old female presented ER with a chief complaint of right flank pain. Patient received an ultrasound yesterday and lab work by PCP. Patient was called today and told to report to ER due to abnormal labs. Patient is endorsing right flank pain for the past 3 weeks. Patient denies any nausea vomiting, constipation/diarrhea, fevers, chills, night sweats. No history of kidney stones. (Regi Camacho) This is 77-year-old female presents to the emergency department complaining of right-sided abdominal pain. Patient states has been ongoing for at least 3 weeks maybe more. Patient states she had an ultrasound yesterday and lab work. Patient states her PCP called her today and told her she had elevated blood work and needed to come to the emergency department. Patient states she continues to have right-sided flank pain. Patient states movement seems to make it worse. Patient states she had an ultrasound yesterday and they told her she had gallstones. Patient states she is also been nauseous with this pain as well. Patient states the pain does radiate to her back on occasion. Patient states that never lets stop it is always there a little bit. (Meet Rahman) - Related Data Home Medications Medication Instructions Recorded Confirmed DULoxetine HCL [Cymbalta] 60 mg PO DAILY 05/17/18 05/20/23 Pravastatin Sodium [Pravachol] 40 mg PO DAILY 05/17/18 05/20/23 Meloxicam [Mobic] 15 mg PO DAILY 05/26/21 05/20/23 Potassium Chloride [Klor-Con M20] 20 meq PO DAILY 05/26/21 05/20/23 hydroCHLOROthiazide [Hydrodiuril] 25 mg PO DAILY 05/26/21 05/20/23 Ibuprofen [Motrin Ib] 800 mg PO Q8H PRN 05/20/23 05/20/23 LORazepam [Ativan] 1 mg PO HS PRN 05/20/23 05/20/23 Tamoxifen Citrate [Nolvadex] 10 mg PO DAILY 05/20/23 05/20/23 Tirzepatide [Mounjaro] 15 mg SQ KURTZ 05/20/23 05/20/23 diphenhydrAMINE HCL [Benadryl] 75 mg PO HS 05/20/23 05/20/23 Allergies Allergy/AdvReac Type Severity Reaction Status Date / Time No Known Allergies Allergy Verified 05/20/23 15:40 Review of Systems ROS Other: All systems not noted in ROS Statement are negative. <Regi Camacho - Last Filed: 05/20/23 14:12> ROS Other: All systems not noted in ROS Statement are negative. <Meet Rahman - Last Filed: 05/20/23 18:41> ROS Statement: Those systems with pertinent positive or pertinent negative responses have been documented in the HPI. Past Medical History Past Medical History: Diabetes Mellitus, Hyperlipidemia, Hypertension Additional Past Medical History / Comment(s): breast CA left breast -rec radiation tx, chronic back pain History of Any Multi-Drug Resistant Organisms: None Reported Past Surgical History: Back Surgery, Breast Surgery, Hysterectomy Additional Past Surgical History / Comment(s): left lumpectomy,mult back surgeries Past Anesthesia/Blood Transfusion Reactions: No Reported Reaction Additional Past Anesthesia/Blood Transfusion Reaction / Comment(s): no hx blood transfusion Past Psychological History: No Psychological Hx Reported Smoking Status: Former smoker - Past Family History Mother Family Medical History: Cancer Additional Family Medical History / Comment(s): colon CA <Regi Camacho - Last Filed: 05/20/23 14:12> General Exam Limitations: no limitations <Regi Camacho - Last Filed: 05/20/23 14:12> <Meet Rahman - Last Filed: 05/20/23 18:41> - General Exam Comments Initial Comments: Visual Physical Exam Vital signs reviewed General: Well-appearing, nontoxic, no acute distress. Head: Normocephalic, atraumatic Eyes: PERRLA, EOMI ENT: Airway patent Chest: Nonlabored breathing Skin: No visual rash, normal skin tone Neuro: Alert and oriented 3 Musculoskeletal: No gross abnormalities (Regi Camacho) GENERAL: Patient is well-developed and well-nourished. Patient is nontoxic and well- hydrated and is in mild distress. ENT: Neck is soft and supple. No significant lymphadenopathy is noted. Oropharynx is clear. Moist mucous membranes. Neck has full range of motion without eliciting any pain. EYES: The sclera were anicteric and conjunctiva were pink and moist. Extraocular movements were intact and pupils were equal round and reactive to light. Eyelids were unremarkable. PULMONARY: Unlabored respirations. Good breath sounds bilaterally. No audible rales rhonchi or wheezing was noted. CARDIOVASCULAR: There is a regular rate and rhythm without any murmurs gallops or rubs. ABDOMEN: Left mid abdomen is tender to palpation no rebound or guarding. SKIN: Skin is clear with no lesions or rashes and otherwise unremarkable. NEUROLOGIC: Patient is alert and oriented x3. Cranial nerves II through XII are grossly intact. Motor and sensory are also intact. Normal speech, volume and content. Symmetrical smile. MUSCULOSKELETAL: Normal extremities with adequate strength and full range of motion. LYMPHATICS: No significant lymphadenopathy is noted PSYCHIATRIC: Normal psychiatric evaluation. (Meet Rahman) Course Vital Signs 05/20/23 14:05 Temperature 99 F Pulse Rate 79 Respiratory 16 Rate Blood Pressure 114/73 O2 Sat by Pulse 97 Oximetry Medical Decision Making <Regi Camacho - Last Filed: 05/20/23 14:12> - Lab Data Result diagrams: 05/20/23 14:47 05/20/23 14:47 <Meet Rahman - Last Filed: 05/20/23 18:41> - Medical Decision Making I performed the quick note portion of the exam. Electronically signed by Regi Camacho PA-C (Regi Camacho) EKG is interpreted by myself. EKG shows a sinus rhythm at 81 bpm TX 138 QRS is 97 QT interval 3 6 and QTc is 407. Patient's EKG shows no ST segment ovation or depression. Was pt. sent in by a medical professional or institution ([facility], [facility] [employer], urgent care, hospital, or long-term...) When possible be specific @ -Patient's primary medical care doctor told her to come to the emergency department Did you speak to anyone other than the patient for history (EMS, parent, family, police, friend...)? What history was obtained from this source @ -No Did you review nursing and triage notes (agree or disagree)? Why? @ -I reviewed and agree with nursing and triage notes Were old charts reviewed (outside hosp., previous admission, EMS record, old EKG, old radiological studies, urgent care reports/EKG's, long-term records)? Report findings @ -I reviewed prior charts on this patient and prior lab work Differential Diagnosis (chest pain, altered mental status, abdominal pain women, abdominal pain men, vaginal bleeding, weakness, fever, dyspnea, syncope, headache, dizziness, GI bleed, back pain, seizure, CVA, palpatations, mental health, musculoskeletal)? @ -Differential Abdominal Pain Women: Appendicitis, Cholecystitis, diverticulosis, ischemic bowel, pancreatitis, hepatitis, UTI, gastroenteritis, AAA, incarcerated hernia, bowel obstruction, constipation, inflammatory bowel, hepatitis, peptic ulcer disease, splenic infarction, perforated viscus, vulvitis, ovarian torsion, PID, kidney stone, placenta abruption, this is not meant to be an all-inclusive list EKG interpreted by me (3pts min.). @ -As above X-rays interpreted by me (1pt min.). @ -None done CT interpreted by me (1pt min.). @ -CT of the abdomen pelvis shows no acute abnormality. U/S interpreted by me (1pt. min.). @ -None done What testing was considered but not performed or refused? (CT, X-rays, U/S, labs)? Why? @ -None What meds were considered but not given or refused? Why? @ -None Did you discuss the management of the patient with other professionals (professionals i.e. , PA, WAGON DRIVER, lab, RT, psych nurse, social worker health services, software firmware engineer, teacher, chief resource officer, case filler)? Give summary @ -I spoke with Dr. Mei and she wanted the patient admitted and have a surgical consult. I spoke with Dr. Nolan desir and they agreed to admit the patient admit the patient and consulted surgery and Dr. Mei Was smoking cessation discussed for >3mins.? @ -No Was critical care preformed (if so, how long)? @ -No Were there social determinants of health that impacted care today? How? (Homelessness, low income, unemployed, alcoholism, drug addiction, transportation, low edu. Level, literacy, decrease access to med. care, half-way, rehab)? @ -No Was there de-escalation of care discussed even if they declined (Discuss DNR or withdrawal of care, Hospice)? DNR status @ -No What co-morbidities impacted this encounter? (DM, HTN, Smoking, COPD, CAD, Cancer, CVA, ARF, Chemo, Hep., AIDS, mental health diagnosis, sleep apnea, morbid obesity)? @ -None Was patient admitted / discharged? Hospital course, mention meds given and route, prescriptions, significant lab abnormalities, going to OR and other pertinent info. @ -Patient had a CTA of the abdomen pelvis that showed no acute abnormality. Patient's lab work was essentially normal. I spoke with Dr. Mei and Dr. Francisco and they wanted the patient admitted I will be consulting Dr. Mei as well as surgery. Undiagnosed new problem with uncertain prognosis? @ -No Drug Therapy requiring intensive monitoring for toxicity (Heparin, Nitro, Insulin, Cardizem)? @ -No Were any procedures done? @ -No Diagnosis/symptom? @ -Right flank pain Acute, or Chronic, or Acute on Chronic? @ -Acute Uncomplicated (without systemic symptoms) or Complicated (systemic symptoms)? @ -Complicated Side effects of treatment? @ -No Exacerbation, Progression, or Severe Exacerbation? @ -No Poses a threat to life or bodily function? How? (Chest pain, USA, MS, pneumonia, PE, COPD, DKA, ARF, appy, cholecystitis, CVA, Diverticulitis, Homicidal, Suicidal, threat to staff... and all critical care pts) @ -No Diagnosis/symptom? @ -Cholelithiasis Acute, or Chronic, or Acute on Chronic? @ -Acute Uncomplicated (without systemic symptoms) or Complicated (systemic symptoms)? @ -Complicated Side effects of treatment? @ -None Exacerbation, Progression, or Severe Exacerbation] @ -No Poses a threat to life or bodily function? @ -No (Meet Rahman) - Lab Data Lab Results 05/20/23 05/20/23 05/20/23 Range/Units 14:09 14:47 14:47 WBC 5.8 (3.8-10.6) k/uL RBC 4.13 (3.80-5.40) m/uL Hgb 13.2 (11.4-16.0) gm/dL Hct 37.6 (34.0-46.0) % MCV 91.0 (80.0-100.0) fL MCH 31.9 (25.0-35.0) pg MCHC 35.0 (31.0-37.0) g/dL RDW 12.7 (11.5-15.5) % Plt Count 218 (150-450) k/uL MPV 7.8 Neutrophils % 58 % Lymphocytes % 32 % Monocytes % 6 % Eosinophils % 3 % Basophils % 1 % Neutrophils # 3.3 (1.3-7.7) k/uL Lymphocytes # 1.8 (1.0-4.8) k/uL Monocytes # 0.3 (0-1.0) k/uL Eosinophils # 0.2 (0-0.7) k/uL Basophils # 0.0 (0-0.2) k/uL PT 11.2 (10.0-12.5) sec INR 1.0 (<1.2) APTT 23.1 (22.0-30.0) sec Sodium (137-145) mmol/L Potassium (3.5-5.1) mmol/L Chloride (98-107) mmol/L Carbon Dioxide (22-30) mmol/L Anion Gap mmol/L BUN (7-17) mg/dL Creatinine (0.52-1.04) mg/dL Est GFR (CKD-EPI)AfAm (>60 ml/min/1.73 sqM) Est GFR (CKD-EPI)NonAf (>60 ml/min/1.73 sqM) Glucose (74-99) mg/dL Calcium (8.4-10.2) mg/dL Total Bilirubin (0.2-1.3) mg/dL AST (14-36) U/L ALT (4-34) U/L Alkaline Phosphatase (38-126) U/L Troponin I (0.000-0.034) ng/mL Total Protein (6.3-8.2) g/dL Albumin (3.5-5.0) g/dL Amylase (30-110) U/L Lipase (23-300) U/L Urine Color Yellow Urine Appearance Cloudy H (Clear) Urine pH 5.0 (5.0-8.0) Ur Specific [place] 1.027 (1.001-1.035) Urine Protein Trace H (Negative) Urine Glucose (UA) Negative (Negative) Urine Ketones Negative (Negative) Urine Blood Negative (Negative) Urine Nitrite Negative (Negative) Urine Bilirubin Negative (Negative) Urine Urobilinogen <2.0 (<2.0) mg/dL Ur Leukocyte Esterase Negative (Negative) Urine RBC 1 (0-5) /hpf Urine WBC 2 (0-5) /hpf Ur Squamous Epith Cells 4 (0-4) /hpf Urine Bacteria Rare H (None) /hpf Hyaline Casts 6 H (0-2) /lpf Urine Mucus Many H (None) /hpf 05/20/23 05/20/23 Range/Units 14:47 14:47 WBC (3.8-10.6) k/uL RBC (3.80-5.40) m/uL Hgb (11.4-16.0) gm/dL Hct (34.0-46.0) % MCV (80.0-100.0) fL MCH (25.0-35.0) pg MCHC (31.0-37.0) g/dL RDW (11.5-15.5) % Plt Count (150-450) k/uL MPV Neutrophils % % Lymphocytes % % Monocytes % % Eosinophils % % Basophils % % Neutrophils # (1.3-7.7) k/uL Lymphocytes # (1.0-4.8) k/uL Monocytes # (0-1.0) k/uL Eosinophils # (0-0.7) k/uL Basophils # (0-0.2) k/uL PT (10.0-12.5) sec INR (<1.2) APTT (22.0-30.0) sec Sodium 142 (137-145) mmol/L Potassium 3.6 (3.5-5.1) mmol/L Chloride 109 H (98-107) mmol/L Carbon Dioxide 24 (22-30) mmol/L Anion Gap 9 mmol/L BUN 22 H (7-17) mg/dL Creatinine 0.86 (0.52-1.04) mg/dL Est GFR (CKD-EPI)AfAm 77 (>60 ml/min/1.73 sqM) Est GFR (CKD-EPI)NonAf 67 (>60 ml/min/1.73 sqM) Glucose 92 (74-99) mg/dL Calcium 9.5 (8.4-10.2) mg/dL Total Bilirubin 0.9 (0.2-1.3) mg/dL AST 32 (14-36) U/L ALT 27 (4-34) U/L Alkaline Phosphatase 89 (38-126) U/L Troponin I <0.012 (0.000-0.034) ng/mL Total Protein 7.0 (6.3-8.2) g/dL Albumin 4.1 (3.5-5.0) g/dL Amylase 52 (30-110) U/L Lipase 194 (23-300) U/L Urine Color Urine Appearance (Clear) Urine pH (5.0-8.0) Ur Specific [place] (1.001-1.035) Urine Protein (Negative) Urine Glucose (UA) (Negative) Urine Ketones (Negative) Urine Blood (Negative) Urine Nitrite (Negative) Urine Bilirubin (Negative) Urine Urobilinogen (<2.0) mg/dL Ur Leukocyte Esterase (Negative) Urine RBC (0-5) /hpf Urine WBC (0-5) /hpf Ur Squamous Epith Cells (0-4) /hpf Urine Bacteria (None) /hpf Hyaline Casts (0-2) /lpf Urine Mucus (None) /hpf Disposition <Regi Camacho - Last Filed: 05/20/23 14:12> Time of Disposition: 18:27 <Meet Rahman - Last Filed: 05/20/23 18:41> Clinical Impression: Flank pain, acute, Cholelithiasis Disposition: ADMITTED IP TO THIS HOSP
[2023-05-20 14:56] LABS: Appearance,Urine Cloudy (Clear); Bacteria,Urine Rare /hpf; Bilirubin,Urine Negative (Negative); Blood,Urine Negative (Negative); Color,Urine Yellow; Glucose,Urine (UA) Negative (Negative); Hyaline Casts,Urine 6 /lpf (0-2); Ketones,Urine Negative (Negative); Leukocyte Esterase,Urine Negative (Negative); Mucus,Urine Many /hpf; Nitrite,Urine Negative (Negative); Protein,Urine Trace (Negative); RBC,Urine 1 /hpf (0-5); Specific Gravity,Urine 1.027 (1.001-1.035); Squamous Epithelial Cell,Urine 4 /hpf (0-4); Urobilinogen,Urine <2.0 mg/dL (<2.0); WBC,Urine 2 /hpf (0-5)
[2023-05-20 14:57] LABS: Basophils % (A) 1 %; Eosinophils # (A) 0.2 k/uL (0-0.7); Eosinophils % (A) 3 %; HCT 37.6 % (34.0-46.0); HGB 13.2 gm/dL (11.4-16.0); Lymphocytes # (A) 1.8 k/uL (1.0-4.8); Lymphocytes % (A) 32 %; MCH 31.9 pg (25.0-35.0); Mean Platelet Volume 7.8; Monocytes # (A) 0.3 k/uL (0-1.0); Monocytes % (A) 6 %; Neutrophils # (A) 3.3 k/uL (1.3-7.7); Neutrophils % (A) 58 %; Platelet Count 218 k/uL (150-450); RBC 4.13 m/uL (3.80-5.40); RDW 12.7 % (11.5-15.5); WBC 5.8 k/uL (3.8-10.6)
[2023-05-20 15:03] LABS: Partial Thromboplastin Time 23.1 sec (22.0-30.0); Prothrombin Time 11.2 sec (10.0-12.5)
[2023-05-20 15:11] LABS: ALT 27 U/L (4-34); AST 32 U/L (14-36); African American GFR (CKD) 77 (>60 ml/min/1.73 sqM); Albumin 4.1 g/dL (3.5-5.0); Alkaline Phosphatase 89 U/L (38-126); Amylase 52 U/L (30-110); Anion Gap 9 mmol/L; Blood Urea Nitrogen 22 mg/dL (7-17); Calcium 9.5 mg/dL (8.4-10.2); Carbon Dioxide 24 mmol/L (22-30); Chloride 109 mmol/L (98-107); Glucose 92 mg/dL (74-99); Lipase 194 U/L (23-300); Non-African American GFR(CKD) 67 (>60 ml/min/1.73 sqM); Potassium 3.6 mmol/L (3.5-5.1); Sodium 142 mmol/L (137-145); Total Bilirubin 0.9 mg/dL (0.2-1.3)
[2023-05-20] MEDS ORDERED: ONDANSETRON 4 MG/2 ML VIAL IVP STA (15:33)
[2023-05-20] MEDS ORDERED: KETOROLAC 15 MG/ML 1 ML VIAL IVP STA (15:33)
--- NOTE | 2023-05-20 16:53 | CT ---
EXAMINATION TYPE: CT abdomen pelvis w con CT DLP: 930.3 mGycm, Automated exposure control for dose reduction was used. DATE OF EXAM: 05/20/2023 4:32 PM COMPARISON: None. CLINICAL INDICATION:Female, 77 years old with history of Right-sided abdominal pain; Rt side abdomina l pain TECHNIQUE: Axial CT abdomen pelvis w con;Sagittal and coronal reformats were created on a separate w orkstation. Contrast used:100 mL of Isovue 300 with IV Contrast, (none if empty) Oral contrast used: without Oral Contrast (none if empty) FINDINGS: LOWER CHEST: Unremarkable ABDOMEN LIVER: Unremarkable GALLBLADDER AND BILE DUCTS: Layering increased densities within the lumen consistent with gallstones are present. PANCREAS: Unremarkable. SPLEEN: Unremarkable. ADRENAL GLANDS: Unremarkable. KIDNEYS AND URETERS: No evidence of hydronephrosis or renal calculus. The ureters are unremarkable. PELVIS BLADDER: Unremarkable REPRODUCTIVE: The uterus is surgically absent. ABDOMEN & PELVIS STOMACH AND BOWEL: Postsurgical changes to the gastroesophageal junction. No evidence of bowel obstru ction. Scattered colonic diverticula present. The appendix is not definitively visualized. PERITONEUM/RETROPERITONEUM: No evidence of pneumoperitoneum or free fluid. VASCULATURE: No evidence of aortic aneurysm. MUSCULOSKELETAL: Post fixation changes to the spine extending multiple levels from T11 to S1. Bilater al iliac bone screws are present. LYMPH NODES: No gross evidence for lymphadenopathy. SOFT TISSUE/ABDOMINAL WALL: Nerve stimulator device in the posterior back. IMPRESSION: 1. No evidence for acute abdominal process. No obstructive uropathy or renal calculus. 2. Colonic diverticulosis. 3. Cholelithiasis. 4. Fixation changes in the spine appears intact.
[2023-05-20] MEDS ORDERED: SODIUM CHLORIDE 0.9% 1,000 ML IV ONE (18:27)
[2023-05-20] MEDS ORDERED: ONDANSETRON 4 MG/2 ML VIAL IVP PRN (18:32)
[2023-05-20] MEDS: KETOROLAC 15 MG/ML 1 ML VIAL IVP SCH (23:06)
[2023-05-21] MEDS: KETOROLAC 15 MG/ML 1 ML VIAL IVP SCH ×4 (05:46→23:38)
[2023-05-21] MEDS ORDERED: LORazepam 1 MG TAB PO PRN (08:49)
--- NOTE | 2023-05-21 08:49 | P.HPIM ---
History of Present Illness H&P Date: 05/21/23 Chief Complaint: Right upper quadrant abdominal pain HISTORY OF PRESENT ILLNESS: This is a 77-year-old female new patient that I have not seen in the office yet with a previous medical history significant for hypertension and hypertensive cardiovascular disease, hyperlipidemia, diabetes mellitus type 2, history of breast cancer on the left side status post left lumpectomy as well as radiation therapy x 25 back in 2021, patient presented to the emergency departm ent at [facility] because of increased right upper quadrant abdominal pain radiating to the right lower quadrant associated with nausea but no vomiting occasional diarrhea, patient stated that she has been dealing with this for quite some times, as a matter fact she was seen by Dr. Andrews and it was thought that the patient has some issues with her gallbladder, she came to the ER at [facility], had a CT scan of the abdomen pelvis that did show evidence of gallstones, without any evidence of any acute abnormalities, patient was admitted to the hospital for evaluation by general surgery Dr. Eduardo, she will be sent for HIDA scan without CCK. REVIEW OF SYSTEMS: Constitutional: No documented fever, no chills, no night sweats. No weight change. No weakness, fatigue or lethargy. No daytime sleepiness. EENT: No headache. No blurred vision or double vision, no loss of vision. No loss of Hearing, no ringing in the ears, no dizziness. No nasal drainage or congestion. No epistaxis. No sore throat. Lungs: No shortness of breath, no cough, no sputum production. No wheezing. Reports dyspnea with activity. Cardiovascular: No chest pain, no lower extremity edema. No palpitations. No paroxysmal nocturnal dyspnea. No orthopnea. No lightheadedness or dizziness. No syncopal episodes. Abdominal: Reports abdominal pain. positive for nausea, no vomiting. occasional diarrhea. No constipation. No bloody or tarry stools reports loss of appetite. Genitourinary: No dysuria, increased frequency, urgency. No urinary retention. Musculoskeletal: No myalgias. No muscle weakness, no gait dysfunction, no frequent falls. positive for chronic back pain. No neck pain. Integumentary: No wounds, no lesions. No rash or pruritus. No unusual bruising. No change in hair or nails. Neurologic: No aphasia. No facial droop. No change in mentation. No head injury. No headache. No paralysis. No paresthesia. Psychiatric: No depression. No anxiety. No mood swings. Endocrine: No abnormal blood sugars. No weight change. PAST MEDICAL HISTORY: Hypertension and hypertensive cardiovascular disease. Mixed hyperlipidemia. Diabetes mellitus type 2. History of breast cancer status post left lumpectomy with radiation therapy 2021. Obesity. Chronic low back pain. Chronic pain syndrome post spinal cord stimulator placement. PAST SURGICAL HISTORY: Bilateral cataract surgery. Left lumpectomy with radiation therapy in 2021. Total abdominal hysterectomy with bilateral salpingo-oophorectomy 1989 due to endometriosis Appendectomy. Colonoscopy February 2023. Laminectomy 2010 Posterior lumbar discectomy with fusion x 2. Dr. Rizvi. Spinal cord stimulator placement currently off. Right knee arthroscopic meniscal tear repair. SOCIAL HISTORY: Patient used to smoke about a pack every day since she was 27-year-old, and she quit in 2006, she denies any alcohol ingestion, no drug use or abuse, no marijuana experience. FAMILY HISTORY: Mother at age of 80 from colon cancer father at age of 23 from stomach cancer patient has 4 brothers and she had 7 sisters 1 from motor vehicle accident patient has 2 daughters one of them with a status epilepticus. PHYSICAL EXAMINATION: General: 77-year-old female in down in bed in no apparent distress HEENT: Head is atraumatic, normocephalic, pupils were equal round reactive to light and recommendation, extraocular muscle movement were intact, sclera nonicteric, conjunctivae were pale, mucous membranes of the mouth are somewhat dry. Neck: Supple, no JVP, normal carotid upstroke bilaterally, no lymphadenopathy. Chest: Decreased breath sounds at the bases, few rhonchi, no expiratory wheezes, no chest wall tenderness, no intercostal retractions. Heart: First heart sound is normal, second heart sound normal there is no gallop or murmur no rubs or heaves. Abdomen: Soft, ,mild tenderness in the right upper quadrant , nondistended, positive bowel sounds. Extremities: There is no edema no calf tenderness DP +2 bilaterally. Neurologic examination: Patient is awake alert and oriented X3 , cranial nerves II-12 appear grossly intact, muscle power were 5 out of 5 in upper extremities and 5 out of 5 in bilateral lower extremities, deep tendon reflexes normal bilaterally. ASSESSMENT AND PLAN: 1. Right upper quadrant abdominal pain in a patient with gallstones arrange for the patient to go for HIDA scan, general surgery evaluation for possible laparoscopic cholecystectomy, continue IV fluid resuscitation, continue pain management, continue Zofran, GI as well as general surgery consultation appreciated. 2. Hypertension and hypertensive cardiovascular disease. Discontinue hydrochlorothiazide and potassium supplements start the patient on losartan 25 mg orally once every day. 3. Mixed hyperlipidemia. Continue patient on pravastatin 40 mg at bedtime. Monitor the patient lipid panel, keep LDL 55-70. 4. Diabetes mellitus type 2. Patient is currently on Mounjaro 15 mg subcutaneously once every week. Continue Accu-Chek before each meal and at bedtime along with a sliding scale insulin. 5. Chronic back pain with a chronic pain syndrome status post spinal cord stimulator replacement currently is off. Continue current pain management. Continue with duloxetine 60 mg orally once every day. 6. History of breast cancer status post left lumpectomy with radiation therapy in 2021. Patient is currently on tamoxifen 10 mg orally once every day. 7. History of colon polyps. Patient is up-to-date on her colonoscopy last 1 is in 2022 8. DVT prophylaxis. Lovenox 40 mg subcutaneously every 24 hours. 9. GI prophylaxis. Continue Protonix 40 mg orally once every day. 10. Full code. 11. Observation. Past Medical History Past Medical History: Diabetes Mellitus, Hyperlipidemia, Hypertension Additional Past Medical History / Comment(s): breast CA left breast -rec radiation tx, chronic back pain History of Any Multi-Drug Resistant Organisms: None Reported Past Surgical History: Back Surgery, Breast Surgery, Hysterectomy Additional Past Surgical History / Comment(s): left lumpectomy,mult back surgeries Past Anesthesia/Blood Transfusion Reactions: No Reported Reaction Additional Past Anesthesia/Blood Transfusion Reaction / Comment(s): no hx blood transfusion Past Psychological History: No Psychological Hx Reported Smoking Status: Former smoker Past Alcohol Use History: None Reported Additional Past Alcohol Use History / Comment(s): quit smoking 2006,started sm oking at age 32 Past Drug Use History: None Reported - Past Family History Mother Family Medical History: Cancer Additional Family Medical History / Comment(s): colon CA Medications and Allergies Home Medications Medication Instructions Recorded Confirmed Type DULoxetine HCL [Cymbalta] 60 mg PO DAILY 05/17/18 05/20/23 History Pravastatin Sodium [Pravachol] 40 mg PO DAILY 05/17/18 05/20/23 History Meloxicam [Mobic] 15 mg PO DAILY 05/26/21 05/20/23 History Potassium Chloride [Klor-Con M20] 20 meq PO DAILY 05/26/21 05/20/23 History hydroCHLOROthiazide [Hydrodiuril] 25 mg PO DAILY 05/26/21 05/20/23 History Ibuprofen [Motrin Ib] 800 mg PO Q8H PRN 05/20/23 05/20/23 History LORazepam [Ativan] 1 mg PO HS PRN 05/20/23 05/20/23 History Tamoxifen Citrate [Nolvadex] 10 mg PO DAILY 05/20/23 05/20/23 History Tirzepatide [Mounjaro] 15 mg SQ KURTZ 05/20/23 05/20/23 History diphenhydrAMINE HCL [Benadryl] 75 mg PO HS 05/20/23 05/20/23 History Allergies Allergy/AdvReac Type Severity Reaction Status Date / Time No Known Allergies Allergy Verified 05/20/23 15:40 Physical Exam Vitals: Vital Signs Temp Pulse Pulse Resp BP BP Pulse Ox 05/21/23 06:58 98.3 F 73 16 105/65 97 05/21/23 02:03 97.5 F L 75 16 96/62 96 05/20/23 21:35 98.2 F 73 17 117/76 99 05/20/23 21:25 73 17 05/20/23 19:51 77 18 132/67 100 05/20/23 14:05 99 F 79 16 114/73 97 Intake and Output 05/20/23 05/21/23 05/21/23 22:59 06:59 14:59 Intake Total 240 Balance 240 Intake: Oral 240 Other: Voiding Method Toilet # Voids 2 1 Weight 67.132 kg Results CBC & Chem 7: 05/20/23 14:47 05/20/23 14:47 Labs: Abnormal Lab Results - Last 24 Hours (Table) 05/20/23 05/20/23 Range/Units 14:09 14:47 Chloride 109 H (98-107) mmol/L BUN 22 H (7-17) mg/dL Urine Appearance Cloudy H (Clear) Urine Protein Trace H (Negative) Urine Bacteria Rare H (None) /hpf Hyaline Casts 6 H (0-2) /lpf Urine Mucus Many H (None) /hpf
[2023-05-21] MEDS: DULoxetine HCL 60 MG CAPSULE.DR PO SCH (09:22)
[2023-05-21] MEDS: LOSARTAN 25 MG TAB PO SCH (09:22)
[2023-05-21] MEDS: PRAVASTATIN SODIUM 40 MG TAB PO SCH (09:22)
[2023-05-21] MEDS: SODIUM CHLORIDE 0.9% 1,000 ML IV SCH ×2 (09:22→13:49)
[2023-05-21] MEDS: TAMOXIFEN 10 MG TAB PO SCH (09:22)
[2023-05-21] MEDS: ENOXAPARIN 40 MG/0.4 ML SYRINGE SQ SCH (09:22)
--- NOTE | 2023-05-21 12:36 | P.GSCN ---
History of Present Illness Consult date: 05/21/23 History of present illness: CHIEF COMPLAINT: Abdominal pain HISTORY OF PRESENT ILLNESS: Patient has been dealing with right upper quadrant abdominal pain x 1 month. She reports the pain radiates from the right upper quadrant to the back. She has been nauseous. Reports a decreased appetite. She was sent by Dr. Andrews, her GI doctor for an abdominal ultrasound for e valuation of her gallbladder. She was found to have evidence of uncomplicated cholelithiasis. Patient reports that she was told by her PCP to come to the hospital for evaluation due to abnormal sodium and her abdominal pain. Sodium level has normalized. Patient denies any fever, chills or sweats. Past surgical history does include a hysterectomy and she has had an anterior approach for back surgery. PAST MEDICAL HISTORY: See below PAST SURGICAL HISTORY: See below MEDICATIONS: See below ALLERGIES: See below SOCIAL HISTORY: No illicit drug use. REVIEW OF SYSTEMS: CONSTITUTIONAL: Denies fever or chills. HEENT: Denies blurred vision, vision changes, or eye pain. Denies hemoptysis CARDIOVASCULAR: Denies chest pain or pressure. RESPIRATORY: No shortness of breath. GASTROINTESTINAL: See HPI for pertinent findings HEMATOLOGIC: Denies bleeding disorders. GENITOURINARY: Denies any blood in urine or increased urinary frequency. SKIN: Denies pruitis. Denies rash. PHYSICAL EXAM: VITAL SIGNS: Reviewed GENERAL: Well-developed in no acute distress. ABDOMEN: Soft. Nondistended. Right upper quadrant tenderness with palpation NEUROLOGIC: Alert and oriented. Cranial nerves II through XII grossly intact. LABORATORY DATA: WBC 5.8 hgb 13.2 plt 218 Na 142 K 3.6 Cr 0.86 LFTs normal lipase 194 IMAGING: Gallbladder ultrasound from 05/19/[address] scan abdomen pelvis no evidence for acute abdominal process. No obstructive uropathy or renal calculus. Colonic diverticulosis. Cholelithiasis. Fixation changes of the spine appear intact. ASSESSMENT: 1. Symptomatic cholelithiasis 2. Right upper quadrant abdominal pain with evidence of gallstones on ultrasound and CAT scan PLAN: -Patient scheduled for laparoscopic cholecystectomy today -Keep patient n.p.o. -Continue IV fluids -Continue pain management -Add antibiotics Thank you for this consultation Physician Traffic Analysis Technician note has been reviewed by physician. Signing provider agrees with the documented findings, assessment, and plan of care. Patient with right upper quadrant pain and gallstones seen on CAT scan and ultrasound. Suspect acute on chronic cholecystitis. Options reviewed. Will proceed with laparoscopic, possible open cholecystectomy at this time. Risks of bleeding, infection, bile leak, bile duct injury, retained common bile duct stone, trocar injury, conversion to an open procedure, hernia, anesthesia related complications were reviewed. The patient understands and wishes to proceed. Past Medical History Past Medical History: Diabetes Mellitus, Hyperlipidemia, Hypertension Additional Past Medical History / Comment(s): breast CA left breast -rec radiation tx, chronic back pain History of Any Multi-Drug Resistant Organisms: None Reported Past Surgical History: Back Surgery, Breast Surgery, Hysterectomy Additional Past Surgical History / Comment(s): left lumpectomy,mult back surgeries Past Anesthesia/Blood Transfusion Reactions: No Reported Reaction Additional Past Anesthesia/Blood Transfusion Reaction / Comm: no hx blood transfusion Past Psychological History: No Psychological Hx Reported Smoking Status: Former smoker Past Alcohol Use History: None Reported Additional Past Alcohol Use History / Comment(s): quit smoking 2006,started smoking at age 32 Past Drug Use History: None Reported - Past Family History Mother Family Medical History: Cancer Additional Family Medical History / Comment(s): colon CA Medications and Allergies Home Medications Medication Instructions Recorded Confirmed Type DULoxetine HCL [Cymbalta] 60 mg PO DAILY 05/17/18 05/20/23 History Pravastatin Sodium [Pravachol] 40 mg PO DAILY 05/17/18 05/20/23 History Meloxicam [Mobic] 15 mg PO DAILY 05/26/21 05/20/23 History Potassium Chloride [Klor-Con M20] 20 meq PO DAILY 05/26/21 05/20/23 History hydroCHLOROthiazide [Hydrodiuril] 25 mg PO DAILY 05/26/21 05/20/23 History Ibuprofen [Motrin Ib] 800 mg PO Q8H PRN 05/20/23 05/20/23 History LORazepam [Ativan] 1 mg PO HS PRN 05/20/23 05/20/23 History Tamoxifen Citrate [Nolvadex] 10 mg PO DAILY 05/20/23 05/20/23 History Tirzepatide [Mounjaro] 15 mg SQ KURTZ 05/20/23 05/20/23 History diphenhydrAMINE HCL [Benadryl] 75 mg PO HS 05/20/23 05/20/23 History Allergies Allergy/AdvReac Type Severity Reaction Status Date / Time No Known Allergies Allergy Verified 05/20/23 15:40 Surgical - Exam Vital Signs Temp Pulse Resp BP Pulse Ox 99 F 79 16 114/73 97 05/20/23 14:05 05/20/23 14:05 05/20/23 14:05 05/20/23 14:05 05/20/23 14:05 Results - Labs 05/20/23 14:47 05/20/23 14:47 Abnormal Lab Results - Last 24 Hours (Table) 05/20/23 05/20/23 Range/Units 14:09 14:47 Chloride 109 H (98-107) mmol/L BUN 22 H (7-17) mg/dL Urine Appearance Cloudy H (Clear) Urine Protein Trace H (Negative) Urine Bacteria Rare H (None) /hpf Hyaline Casts 6 H (0-2) /lpf Urine Mucus Many H (None) /hpf Diabetes panel 05/20/23 Range/Units 14:47 Sodium 142 (137-145) mmol/L Potassium 3.6 (3.5-5.1) mmol/L Chloride 109 H (98-107) mmol/L Carbon Dioxide 24 (22-30) mmol/L BUN 22 H (7-17) mg/dL Creatinine 0.86 (0.52-1.04) mg/dL Glucose 92 (74-99) mg/dL Calcium 9.5 (8.4-10.2) mg/dL AST 32 (14-36) U/L ALT 27 (4-34) U/L Alkaline Phosphatase 89 (38-126) U/L Total Protein 7.0 (6.3-8.2) g/dL Albumin 4.1 (3.5-5.0) g/dL Calcium panel 05/20/23 Range/Units 14:47 Calcium 9.5 (8.4-10.2) mg/dL Albumin 4.1 (3.5-5.0) g/dL Pituitary panel 05/20/23 Range/Units 14:47 Sodium 142 (137-145) mmol/L Potassium 3.6 (3.5-5.1) mmol/L Chloride 109 H (98-107) mmol/L Carbon Dioxide 24 (22-30) mmol/L BUN 22 H (7-17) mg/dL Creatinine 0.86 (0.52-1.04) mg/dL Glucose 92 (74-99) mg/dL Calcium 9.5 (8.4-10.2) mg/dL Adrenal panel 05/20/23 Range/Units 14:47 Sodium 142 (137-145) mmol/L Potassium 3.6 (3.5-5.1) mmol/L Chloride 109 H (98-107) mmol/L Carbon Dioxide 24 (22-30) mmol/L BUN 22 H (7-17) mg/dL Creatinine 0.86 (0.52-1.04) mg/dL Glucose 92 (74-99) mg/dL Calcium 9.5 (8.4-10.2) mg/dL Total Bilirubin 0.9 (0.2-1.3) mg/dL AST 32 (14-36) U/L ALT 27 (4-34) U/L Alkaline Phosphatase 89 (38-126) U/L Total Protein 7.0 (6.3-8.2) g/dL Albumin 4.1 (3.5-5.0) g/dL
--- NOTE | 2023-05-21 12:42 | P.CONS ---
History of Present Illness - Reason for Consult Consult date: 05/21/23 Right flank pain, cholelithiasis Requesting physician: Meet Rahman - Chief Complaint Right upper quadrant pain - History of Present Illness This is a pleasant 77-year-old female presented to the emergency department for complaints of right upper quadrant pain. The pain has been going on for quite some time she states she is supposed be worked up as an outpatient with gastroenterology and ultrasound was ordered. She was scheduled to have an ultrasound done on 05/19/2023 which reported uncomplicated cholelithiasis with nondilated CBD. She continued to have the discomfort so she came to the emergency department for further evaluation. Her past medical history includes hypertension, cardiovascular disease, hyperlipidemia, diabetes mellitus history breast cancer. She has had some associated nausea but no vomiting. She had a CT of the abdomen and pelvis that reported no acute abdominal process no obstructive uropathy or renal calculus. Colonic diverticulosis. Cholelithiasis and fixation changes in the spine appear intact. Patient's labs were unremark able. Review of Systems REVIEW OF SYSTEMS: CARDIOPULMONARY: No chest pain or shortness of breath. Gastrointestinal: Right upper quadrant pain/discomfort predominantly after eating. Nausea with no vomiting. No hematemesis, coffee-ground emesis. No rectal bleeding, or melena. GENITOURINARY: No dysuria or hematuria. MUSCULOSKELETAL: Reports normal range of motion., Joint pain. SKIN: No rashes. No jaundice. ENDOCRINE: No chills, fevers. No excessive weight gain or loss. No polydipsia or polyuria. PSYCHIATRIC: Unremarkable. NEUROLOGY: No change in mental status. Denies dizziness, headache. ENT: Vision unremarkable. CONSTITUTIONAL: No recent weight loss. No fever, chills, night sweats. Past Medical History Past Medical History: Diabetes Mellitus, Hyperlipidemia, Hypertension Additional Past Medical History / Comment(s): breast CA left breast -rec radiation tx, chronic back pain History of Any Multi-Drug Resistant Organisms: None Reported Past Surgical History: Back Surgery, Breast Surgery, Hysterectomy Additional Past Surgical History / Comment(s): left lumpectomy,mult back surgeries Past Anesthesia/Blood Transfusion Reactions: No Reported Reaction Additional Past Anesthesia/Blood Transfusion Reaction / Comm: no hx blood transfusion Past Psychological History: No Psychological Hx Reported Smoking Status: Former smoker Past Alcohol Use History: None Reported Additional Past Alcohol Use History / Comment(s): quit smoking 2006,started smoking at age 32 Past Drug Use History: None Reported - Past Family History Mother Family Medical History: Cancer Additional Family Medical History / Comment(s): colon CA Medications and Allergies Home Medications Medication Instructions Recorded Confirmed Type DULoxetine HCL [Cymbalta] 60 mg PO DAILY 05/17/18 05/20/23 History Pravastatin Sodium [Pravachol] 40 mg PO DAILY 05/17/18 05/20/23 History Meloxicam [Mobic] 15 mg PO DAILY 05/26/21 05/20/23 History Potassium Chloride [Klor-Con M20] 20 meq PO DAILY 05/26/21 05/20/23 History hydroCHLOROthiazide [Hydrodiuril] 25 mg PO DAILY 05/26/21 05/20/23 History Ibuprofen [Motrin Ib] 800 mg PO Q8H PRN 05/20/23 05/20/23 History LORazepam [Ativan] 1 mg PO HS PRN 05/20/23 05/20/23 History Tamoxifen Citrate [Nolvadex] 10 mg PO DAILY 05/20/23 05/20/23 History Tirzepatide [Mounjaro] 15 mg SQ KURTZ 05/20/23 05/20/23 History diphenhydrAMINE HCL [Benadryl] 75 mg PO HS 05/20/23 05/20/23 History Allergies Allergy/AdvReac Type Severity Reaction Status Date / Time No Known Allergies Allergy Verified 05/20/23 15:40 Physical Exam Vitals: Vital Signs Temp Pulse Pulse Resp BP BP Pulse Ox 05/21/23 02:03 97.5 F L 75 16 96/62 96 05/20/23 21:35 98.2 F 73 17 117/76 99 05/20/23 21:25 73 17 05/20/23 19:51 77 18 132/67 100 05/20/23 14:05 99 F 79 16 114/73 97 Intake and Output 05/20/23 05/20/23 05/21/23 14:59 22:59 06:59 Intake Total 240 Balance 240 Intake: Oral 240 Other: Voiding Method Toilet # Voids 2 1 Weight 67.132 kg 67.132 kg General appearance: The patient is alert, oriented, appears in no acute distress. HET: Head is normocephalic and atraumatic. Conjunctiva pink. Sclera anicteric. Neck: Supple without lymphadenopathy. Trachea midline. Heart: Regular. Lungs: Equal expansion, normal respiratory effort. Abdomen: Soft, nontender, nondistended with bowel sounds. No guarding or rigidity. Skin: No rashes. No jaundice. Extremities: Normal skin color and turgor. No pedal edema. Neurological: No focal deficits. Alert and oriented x3. Results CBC & Chem 7: 05/20/23 14:47 05/20/23 14:47 Labs: Abnormal Lab Results - Last 24 Hours (Table) 05/20/23 05/20/23 Range/Units 14:09 14:47 Chloride 109 H (98-107) mmol/L BUN 22 H (7-17) mg/dL Urine Appearance Cloudy H (Clear) Urine Protein Trace H (Negative) Urine Bacteria Rare H (None) /hpf Hyaline Casts 6 H (0-2) /lpf Urine Mucus Many H (None) /hpf Comments: CT of the abdomen and pelvis that reported no acute abdominal process no obstructive uropathy or renal calculus. Colonic diverticulosis. Cholelithiasis and fixation changes in the spine appear intact. Assessment and Plan (1) Cholelithiasis Narrative/Plan: 77-year-old female who was seen by gastroenterology for workup of right quadrant pain had outpatient ultrasound showing uncomplicated cholelithiasis. Pain has been ongoing for quite some time because of some nausea but no vomiting. Pain continued so she decided to come to the emergency department for further evaluation. She had a CT of the abdomen and pelvis without any acute findings. No elevation in her LFTs. Symptoms may be related to cholelithiasis. General surgery is on consult. Will defer management to them. No further workup from gastroenterology. Current Visit: Yes Status: Acute Code(s): K80.20 - CALCULUS OF GALLBLADDER W/O CHOLECYSTITIS W/O OBSTRUCTION SNOMED Code(s): 268809036 (2) Right upper quadrant pain Current Visit: Yes Status: Acute Code(s): R10.11 - RIGHT UPPER QUADRANT PAIN SNOMED Code(s): 752722116 Plan: 1. Continue symptomatic and supportive care 2. Diet per general surgery recommendations 3. No further workup from gastroenterology will defer further management for cholelithiasis to general surgery Thank you for this consultation, we will sign off at this time. Dr. Janna Andrews I agree with the dictator's note, documented as a scribe by Tonia Stroud.
--- NOTE | 2023-05-21 13:37 | NM ---
EXAMINATION TYPE: NM hepatobiliary wo EF DATE OF EXAM: 05/21/2023 COMPARISON: CT 05/20/2023 CLINICAL INDICATION: Female, 77 years old with history of Gallstones; TECHNIQUE: After the intravenous administration of 5.15 mCi Tc 99m Mebrofenin hepatobiliary scintigra phy is performed. Immediate images post injection. FINDINGS: Satisfactory initial uptake of tracer by the liver. Gallbladder is visualized at 10 minutes. Small alina wel is visualized at the 90 minute delayed scan. Gallbladder ejection fraction is not assessed. IMPRESSION: Gallbladder filling is identified. No scintigraphic evidence for acute cholecystitis.
[2023-05-21] MEDS ORDERED: ACETAMINOPHEN TAB 325 MG TAB PO PRN ×2 (14:50→19:48)
[2023-05-21] MEDS: PIPERACILLIN-TAZOBACTAM 3.375 GM in SODIUM CHLORIDE 0.9% 100 ML IVPB SCH ×2 (15:26→23:39)
[2023-05-21] MEDS ORDERED: ePHEDrine 50 MG/ML 1 ML VIAL ONE (18:44)
[2023-05-21] MEDS ORDERED: fentaNYL (PF) 50 MCG/ML 2 ML AMP ONE (18:44)
[2023-05-21] MEDS ORDERED: SUCCINYLCHOLINE CHLORIDE 200 MG/10 ML VIAL IV ONE (18:44)
[2023-05-21] MEDS ORDERED: NEOSTIGMINE 1 MG/ML 10 ML VIAL ONE (18:44)
[2023-05-21] MEDS ORDERED: MIDAZOLAM 2 MG/2 ML VIAL ONE (18:44)
[2023-05-21] MEDS ORDERED: GLYCOPYRROLATE 0.2 MG/ML 2 ML VIAL ONE (18:44)
[2023-05-21] MEDS ORDERED: LIDOCAINE 4% LTA KIT (4 ML) TOPICAL ONE (18:44)
[2023-05-21] MEDS ORDERED: LIDOCAINE 1% INJ 10MG/ML (20 ML MDV) ONE (18:44)
[2023-05-21] MEDS ORDERED: PHENYLEPHRINE-0.9% NACL SYG 1,000 MCG/10 ML SYRINGE ONE (18:44)
[2023-05-21] MEDS ORDERED: ROCURONIUM 10 MG/ML (5 ML VIAL) IV ONE (18:44)
[2023-05-21] MEDS ORDERED: PROPOFOL 10 MG/ML 20 ML VIAL IV ONE (18:44)
[2023-05-21] MEDS ORDERED: BUPIVACAINE (PF) 0.25% 30 ML VIAL SQ ONE ×2 (18:45→19:08)
[2023-05-21] MEDS ORDERED: SODIUM CHLORIDE 0.9% 1,000 ML IV ONE ×2 (18:46→20:37)
[2023-05-21] MEDS ORDERED: traMADol 50 MG TAB PO PRN (19:48)
[2023-05-21] MEDS ORDERED: HYDROcodone/APAP 5-325MG 1 EACH TAB PO PRN (19:48)
--- NOTE | 2023-05-21 19:48 | P.OP ---
Date of Procedure: 05/21/23 Procedure(s) Performed: PREOPERATIVE DIAGNOSIS: Chronic cholecystitis POSTOPERATIVE DIAGNOSIS: Same PROCEDURE: Laparoscopic cholecystectomy SURGEON: Law EBL: Minimal see anesthesia record ANESTHESIA: Gen. COMPLICATIONS: None OPERATIVE PROCEDURE: The patient was brought and placed on the operating room table in the supine position. The patient was placed under general anesthesia at that time. The abdomen was prepped and draped in the usual sterile fashion. A small vertical infraumbilical incision was made. The fascia was grasped with the Megha forceps. The fascia was retracted anteriorly. The Veress needle was advanced into the peritoneal cavity. The saline drop test was normal. Insufflation took place up to 15 mmHg. A 5 mm optical trocar was advanced and the peritoneal cavity. 2 additional 5 mm trochars were placed in the right upper quadrant under direct visualization. A 12 mm trocar was advanced into the epigastric incision site. The gallbladder was mildly inflamed. The liver, stomach, visualized colon and small bowel appeared normal. The patient had some adhesions to the right paramedian abdominal wall from prior surgery. The gallbladder was retracted superiorly and laterally. The peritoneum overlying the infundibulum was bluntly dissected. The patient's cystic duct was visualized. The junction between the cystic duct common and hepatic duct was identified. The critical view of safety was achieved after blunt dissection. The cystic duct was then divided after placement of 3 12 mm clips on the patient's side and one on the specimen side. The cystic artery was identified and clipped as well. A small vessel was seen along the gallbladder fossa and clipped as well. The gallbladder was then removed from the liver bed using electrocautery. The gallbladder was then removed from the epigastric trocar site with an Endo Catch bag. The gallbladder fossa was irrigated with saline. There was no evidence of any bleeding or biliary drainage seen. The fascia at the 12 millimeter site was closed using a Bryant-Jose 0 Vicryl stitch. The trochars were then removed. The skin at all 4 sites was closed using a 4-0 Monocryl stitch. Skin glue was utilized on the incision sites. At the end of this procedure the sponge and needle counts were correct. DISPOSITION: Stable to the recovery room
[2023-05-21] MEDS ORDERED: KETOROLAC 15 MG/ML 1 ML VIAL IVP ONE (20:10)
[2023-05-21] MEDS ORDERED: HYDROmorphone 0.5 MG/0.5 ML SYRINGE IVP ONE ×2 (20:10→20:25)
[2023-05-21 20:17] LABS: Glucose,Whole Blood 77 mg/dL (70-110)
[2023-05-21] MEDS: HYDROmorphone 1 MG/ML 1 ML SYRINGE IVP PRN (22:02)
[2023-05-21] MEDS: diphenhydrAMINE 25 MG CAP PO SCH (23:42)
[2023-05-22] MEDS: HYDROmorphone 1 MG/ML 1 ML SYRINGE IVP PRN (02:00)
[2023-05-22] MEDS: SODIUM CHLORIDE 0.9% 1,000 ML IV SCH ×4 (04:07→22:56)
[2023-05-22] MEDS: KETOROLAC 15 MG/ML 1 ML VIAL IVP SCH ×4 (05:51→23:45)
[2023-05-22 08:05] LABS: Basophils % (A) 0 %; Eosinophils % (A) 1 %; HCT 30.2 % (34.0-46.0); Lymphocytes # (A) 0.8 k/uL (1.0-4.8); Lymphocytes % (A) 15 %; MCH 31.3 pg (25.0-35.0); MCHC 33.7 g/dL (31.0-37.0); MCV 92.7 fL (80.0-100.0); Mean Platelet Volume 8.1; Monocytes # (A) 0.3 k/uL (0-1.0); Monocytes % (A) 5 %; Neutrophils % (A) 78 %; Platelet Count 144 k/uL (150-450); RBC 3.26 m/uL (3.80-5.40); RDW 12.6 % (11.5-15.5); WBC 5.1 k/uL (3.8-10.6)
[2023-05-22 08:15] LABS: HGB 10.2 gm/dL (11.4-16.0)
[2023-05-22 08:24] LABS: ALT 31 U/L (4-34); AST 43 U/L (14-36); African American GFR (CKD) >90 (>60 ml/min/1.73 sqM); Albumin 2.8 g/dL (3.5-5.0); Albumin/Globulin Ratio 1.3; Alkaline Phosphatase 55 U/L (38-126); Anion Gap 8 mmol/L; Blood Urea Nitrogen 14 mg/dL (7-17); Calcium 7.2 mg/dL (8.4-10.2); Carbon Dioxide 19 mmol/L (22-30); Chloride 110 mmol/L (98-107); Globulin 2.2 g/dL; Glucose 84 mg/dL (74-99); Non-African American GFR(CKD) 84 (>60 ml/min/1.73 sqM); Sodium 137 mmol/L (137-145); Total Bilirubin 1.2 mg/dL (0.2-1.3)
[2023-05-22 08:50] LABS: Potassium 3.5 mmol/L (3.5-5.1)
[2023-05-22] MEDS: LOSARTAN 25 MG TAB PO SCH (09:00)
[2023-05-22] MEDS: PANTOPRAZOLE 40 MG TABLET PO SCH (09:00)
[2023-05-22] MEDS: ENOXAPARIN 40 MG/0.4 ML SYRINGE SQ SCH (09:00)
[2023-05-22] MEDS: PIPERACILLIN-TAZOBACTAM 3.375 GM in SODIUM CHLORIDE 0.9% 100 ML IVPB SCH ×3 (09:01→23:40)
[2023-05-22] MEDS: TAMOXIFEN 10 MG TAB PO SCH (09:01)
[2023-05-22] MEDS: DULoxetine HCL 60 MG CAPSULE.DR PO SCH (09:01)
[2023-05-22] MEDS: PRAVASTATIN SODIUM 40 MG TAB PO SCH (09:01)
--- NOTE | 2023-05-22 14:53 | P.PN ---
Subjective Progress Note Date: 05/22/23 NAEON. No N/V. No F/C. NO SOB or CP. Ambulatory and voiding. Mild incisional pain. Admits to flatus, no BM. Tolerating diet. Objective - Vital Signs Vital signs: Vital Signs Temp 98.9 F 05/22/23 14:00 Pulse 80 05/22/23 14:00 Resp 16 05/22/23 14:00 BP 101/56 05/22/23 14:00 Pulse Ox 98 05/22/23 14:00 FiO2 Intake & Output 05/21/23 05/22/23 05/22/23 18:59 06:59 18:59 Intake Total 1510 350 Output Total 20 Balance 1510 330 Intake: IV 600 300 Intake, IV Titration 910 Amount Sodium Chloride 0.9% 1, 910 000 ml @ 130 mls/hr IV . Q7H42M [facility] Rx#:[id number] Oral 50 Output: Estimated Blood Loss 20 Other: Voiding Method Toilet Toilet # Voids 1 - Exam Gen: AxO, NAD Pulm: non-labored respirations Abd: soft, mildly-tender around incisions, non-distended. No guarding/rebound/rigidity Extrem: no edema seen - Labs CBC & Chem 7: 05/22/23 07:17 05/22/23 07:17 Labs: Abnormal Lab Results - Last 24 Hours (Table) 05/22/23 05/22/23 Range/Units 07:17 07:17 RBC 3.26 L (3.80-5.40) m/uL Hgb 10.2 L D (11.4-16.0) gm/dL Hct 30.2 L (34.0-46.0) % Plt Count 144 L (150-450) k/uL Lymphocytes # 0.8 L (1.0-4.8) k/uL Chloride 110 H (98-107) mmol/L Carbon Dioxide 19 L (22-30) mmol/L Calcium 7.2 L (8.4-10.2) mg/dL AST 43 H (14-36) U/L Total Protein 5.0 L (6.3-8.2) g/dL Albumin 2.8 L (3.5-5.0) g/dL Assessment and Plan Assessment: Patient is a 77 year old female who is s/p laparoscopic cholecystectomy Plan: -Diet as tolerated -IVF hydration -PRN pain and nausea control -Encourage ambulation -DVT/GI PPx -Care per primary Irwin Henning MD General Surgery
--- NOTE | 2023-05-22 19:43 | P.PN ---
Subjective Progress Note Date: 05/22/23 77-year-old female presented to the emergency department for complaints of right upper quadrant pain. The pain has been going on for quite some time she states she is supposed be worked up as an outpatient with gastroenterology and ultrasound was ordered. She was scheduled to have an ultrasound done on 05/19/2023 which reported uncomplicated cholelithiasis with nondilated CBD. She continued to have the discomfort so she came to the emergency department for further evaluation. Her past medical history includes hypertension, cardiovascular disease, hyperlipidemia, diabetes mellitus history breast cancer. She has had some associated nausea but no vomiting. She had a CT of the abdomen and pelvis that reported no acute abdominal process no obstructive uropathy or renal calculus. Colonic diverticulosis. Cholelithiasis and fixation changes in the spine appear intact. Patient's labs were unremarkable. Objective - Vital Signs Vital signs: Vital Signs Temp 98 F 05/22/23 07:41 Pulse 76 05/22/23 07:41 Resp 16 05/22/23 07:41 BP 92/54 05/22/23 07:41 Pulse Ox 95 05/22/23 09:13 FiO2 Intake & Output 05/21/23 05/22/23 05/22/23 18:59 06:59 18:59 Intake Total 1510 350 Output Total 20 Balance 1510 330 Intake: IV 600 300 Intake, IV Titration 910 Amount Sodium Chloride 0.9% 1, 910 000 ml @ 130 mls/hr IV . Q7H42M [facility] Rx#:[id number] Oral 50 Output: Estimated Blood Loss 20 Other: Voiding Method Toilet Toilet # Voids 1 - Exam General appearance: The patient is alert, oriented, appears in no acute distress. HET: Head is normocephalic and atraumatic. Conjunctiva pink. Sclera anicteric. Neck: Supple without lymphadenopathy. Trachea midline. Heart: Regular. Lungs: Equal expansion, normal respiratory effort. Abdomen: Soft, nontender, nondistended with bowel sounds. No guarding or rigidity. Skin: No rashes. No jaundice. Extremities: Normal skin color and turgor. No pedal edema. Neurological: No focal deficits. Alert and oriented x3. - Labs CBC & Chem 7: 05/22/23 07:17 05/22/23 07:17 Labs: Abnormal Lab Results - Last 24 Hours (Table) 05/22/23 05/22/23 Range/Units 07:17 07:17 RBC 3.26 L (3.80-5.40) m/uL Hgb 10.2 L D (11.4-16.0) gm/dL Hct 30.2 L (34.0-46.0) % Plt Count 144 L (150-450) k/uL Lymphocytes # 0.8 L (1.0-4.8) k/uL Chloride 110 H (98-107) mmol/L Carbon Dioxide 19 L (22-30) mmol/L Calcium 7.2 L (8.4-10.2) mg/dL AST 43 H (14-36) U/L Total Protein 5.0 L (6.3-8.2) g/dL Albumin 2.8 L (3.5-5.0) g/dL Assessment and Plan Assessment: 1. Right upper quadrant abdominal pain in a patient with gallstones arrange for the patient to go for HIDA scan, general surgery evaluation for possible laparoscopic cholecystectomy, continue IV fluid resuscitation, continue pain management, continue Zofran, GI as well as general surgery consultation appreciated. 2. Hypertension and hypertensive cardiovascular disease. Discontinue hydrochlorothiazide and potassium supplements start the patient on losartan 25 mg orally once every day. 3. Mixed hyperlipidemia. Continue patient on pravastatin 40 mg at bedtime. Monitor the patient lipid panel, keep LDL 55-70. 4. Diabetes mellitus type 2. Patient is currently on Mounjaro 15 mg subcutaneously once every week. Continue Accu-Chek before each meal and at bedtime along with a sliding scale insulin. 5. Chronic back pain with a chronic pain syndrome status post spinal cord stimulator replacement currently is off. Continue current pain management. Continue with duloxetine 60 mg orally once every day. 6. History of breast cancer status post left lumpectomy with radiation therapy in 2021. Patient is currently on tamoxifen 10 mg orally once every day. 7. History of colon polyps. Patient is up-to-date on her colonoscopy last 1 is in 2022 8. DVT prophylaxis. Lovenox 40 mg subcutaneously every 24 hours.
[2023-05-22] MEDS: diphenhydrAMINE 25 MG CAP PO SCH (21:21)
[2023-05-23] MEDS: KETOROLAC 15 MG/ML 1 ML VIAL IVP SCH ×2 (07:34→13:08)
[2023-05-23 07:48] LABS: Basophils % (A) 0 %; Eosinophils # (A) 0.3 k/uL (0-0.7); Eosinophils % (A) 6 %; HCT 30.8 % (34.0-46.0); HGB 10.5 gm/dL (11.4-16.0); Lymphocytes # (A) 0.9 k/uL (1.0-4.8); Lymphocytes % (A) 21 %; MCH 31.3 pg (25.0-35.0); MCHC 34.2 g/dL (31.0-37.0); MCV 91.4 fL (80.0-100.0); Monocytes # (A) 0.3 k/uL (0-1.0); Monocytes % (A) 6 %; Neutrophils # (A) 2.8 k/uL (1.3-7.7); Neutrophils % (A) 66 %; Platelet Count 140 k/uL (150-450); RBC 3.37 m/uL (3.80-5.40); RDW 12.9 % (11.5-15.5); WBC 4.3 k/uL (3.8-10.6)
[2023-05-23] MEDS: ENOXAPARIN 40 MG/0.4 ML SYRINGE SQ SCH (07:49)
[2023-05-23] MEDS: DULoxetine HCL 60 MG CAPSULE.DR PO SCH (07:50)
[2023-05-23] MEDS: PANTOPRAZOLE 40 MG TABLET PO SCH (07:50)
[2023-05-23] MEDS: PIPERACILLIN-TAZOBACTAM 3.375 GM in SODIUM CHLORIDE 0.9% 100 ML IVPB SCH (07:50)
[2023-05-23] MEDS: LOSARTAN 25 MG TAB PO SCH (07:50)
[2023-05-23] MEDS: SODIUM CHLORIDE 0.9% 1,000 ML IV SCH (07:50)
[2023-05-23] MEDS: TAMOXIFEN 10 MG TAB PO SCH (07:51)
[2023-05-23] MEDS: PRAVASTATIN SODIUM 40 MG TAB PO SCH (07:51)
[2023-05-23 07:56] LABS: African American GFR (CKD) 85 (>60 ml/min/1.73 sqM); Anion Gap 5 mmol/L; Blood Urea Nitrogen 9 mg/dL (7-17); Calcium 7.7 mg/dL (8.4-10.2); Carbon Dioxide 22 mmol/L (22-30); Chloride 113 mmol/L (98-107); Glucose 92 mg/dL (74-99); Non-African American GFR(CKD) 74 (>60 ml/min/1.73 sqM); Potassium 3.1 mmol/L (3.5-5.1); Sodium 140 mmol/L (137-145)
[2023-05-23] MEDS ORDERED: TIRZEPATIDE 15 MG/0.5 ML SQ SCH (09:00)
[2023-05-23] MEDS ORDERED: Potassium Replacement Protocol 1 EACH MISC MISCELLANE PRN (09:30)
--- NOTE | 2023-05-23 10:09 | P.PN ---
Subjective Progress Note Date: 05/23/23 Principal diagnosis: Acute cholecystitis Patient feels well today. Says her pain is minimal. She would like to go home today. She did have a low-grade temp last night 100.5. She has been afebrile since then. Tolerating diet. Normal white blood cell count. Objective - Vital Signs Vital signs: Vital Signs Temp 98.8 F 05/23/23 08:00 Pulse 77 05/23/23 08:00 Resp 18 05/23/23 08:00 BP 117/73 05/23/23 08:00 Pulse Ox 96 05/23/23 09:22 FiO2 Intake & Output 05/22/23 05/23/23 05/23/23 18:59 06:59 18:59 Intake Total 540 590 Balance 540 590 Intake: Oral 540 590 Other: Voiding Method Toilet Toilet Toilet # Voids 2 2 - Exam Abdomen: Soft, nontender, nondistended, incisions clean and dry - Labs CBC & Chem 7: 05/23/23 06:36 05/23/23 06:36 Labs: Abnormal Lab Results - Last 24 Hours (Table) 05/23/23 05/23/23 Range/Units 06:36 06:36 RBC 3.37 L (3.80-5.40) m/uL Hgb 10.5 L (11.4-16.0) gm/dL Hct 30.8 L (34.0-46.0) % Plt Count 140 L (150-450) k/uL Lymphocytes # 0.9 L (1.0-4.8) k/uL Potassium 3.1 L (3.5-5.1) mmol/L Chloride 113 H (98-107) mmol/L Calcium 7.7 L (8.4-10.2) mg/dL Assessment and Plan (1) Acute cholecystitis Narrative/Plan: Patient doing well today. Continue low-fat diet. Ambulate. May shower. May discharge if remains afebrile. Current Visit: Yes Status: Acute Code(s): K81.0 - ACUTE CHOLECYSTITIS SNOMED Code(s): 96497803
[2023-05-23] MEDS: POTASSIUM CHLORIDE ER 20 MEQ TAB.ER PO SCH (10:29)
[2023-05-23 12:55] VITALS: BP 117/78; PULSE 76; RESP 17; TEMP 99.2
== END 2023-05-23 13:53 | disposition home or self-care (01) ==
LOC: EC 13:43 → 6NMEDSUR 18:32 → 5NMEDONC 20:37
PROVIDERS: ADMIT Internal Medicine; ATTEND Internal Medicine
DX: K80.10 Calculus of gallbladder with chronic cholecystitis without obstruction (principal); E11.9 Type 2 diabetes mellitus without complications; E78.2 Mixed hyperlipidemia; I10 Essential (primary) hypertension; G89.4 Chronic pain syndrome; E66.9 Obesity, unspecified; Z68.24 Body mass index [BMI] 24.0-24.9, adult; Z85.3 Personal history of malignant neoplasm of breast; Z86.010 Personal history of colon polyps; Z87.891 Personal history of nicotine dependence; Z92.3 Personal history of irradiation; Z79.1 Long term (current) use of non-steroidal anti-inflammatories (NSAID); Z79.810 Long term (current) use of selective estrogen receptor modulators (SERMs); Z79.899 Other long term (current) drug therapy
CPT/HCPCS: 96376 ×3; 96361; 96365; 96366 ×2; 96372 ×3; 96375 ×2; 99285; 36415; 94760 ×2; 93005; 80053 ×2; 80048; 82150; 83690; 84484; 85025 ×3; 85610; 85730; 81001; 74177; 78226; 47562; G0378 ×5; A9537; S0187 ×3; J2543 ×3; J2250; J0330; J2710; J2405; J2001; J1650 ×3; J3010; J1170 ×3; J1885 ×3; J2704; Q9967; J2371; J0665; 88304

== ENCOUNTER 2023-06-04 16:45 | Emergency (ER) | payer MEDICARE ==
--- NOTE | 2023-06-04 17:01 | ED ---
Fall HPI - General Chief Complaint: Fall Stated Complaint: Fall-Rib Pain-on thinners Time Seen by Provider: 06/04/23 17:00 Source: patient, RN notes reviewed Mode of arrival: ambulatory - History of Present Illness Initial Comments: Patient is a 77-year-old female presented to ER with chief complaint of a fall. Patient states last night she tripped over her ottoman hitting her head on the wall. Patient also states she hit her ribs on the left side on the toilet. She since has been reporting pain on the left side of her ribs worse with movement and deep breaths. Denies any other injuries. Denies loss of consciousness. Patient was recently on Lovenox. Patient sent here by urgent care for evaluation. - Related Data Home Medications Medication Instructions Recorded Confirmed DULoxetine HCL [Cymbalta] 60 mg PO DAILY 05/17/18 05/20/23 Pravastatin Sodium [Pravachol] 40 mg PO DAILY 05/17/18 05/20/23 Meloxicam [Mobic] 15 mg PO DAILY 05/26/21 05/20/23 Potassium Chloride [Klor-Con M20] 20 meq PO DAILY 05/26/21 05/20/23 hydroCHLOROthiazide [Hydrodiuril] 25 mg PO DAILY 05/26/21 05/20/23 Ibuprofen [Motrin Ib] 800 mg PO Q8H PRN 05/20/23 05/20/23 LORazepam [Ativan] 1 mg PO HS PRN 05/20/23 05/20/23 Tamoxifen Citrate [Nolvadex] 10 mg PO DAILY 05/20/23 05/20/23 Tirzepatide [Mounjaro] 15 mg SQ KURTZ 05/20/23 05/20/23 diphenhydrAMINE HCL [Benadryl] 75 mg PO HS 05/20/23 05/20/23 Previous Rx's Medication Instructions Recorded HYDROcodone/APAP 5-325MG [Wilkinson 1 tab PO Q6HR PRN 3 Days #6 tab 05/21/23 5-325] Amoxic-Pot Clav 875-125Mg 1 tab PO Q12HR 5 Days #10 tab 05/23/23 [Augmentin 875-125] Allergies Allergy/AdvReac Type Severity Reaction Status Date / Time No Known Allergies Allergy Verified 06/04/23 16:59 Review of Systems ROS Statement: Those systems with pertinent positive or pertinent negative responses have been documented in the HPI. ROS Other: All systems not noted in ROS Statement are negative. Past Medical History Past Medical History: Diabetes Mellitus, Hyperlipidemia, Hypertension Additional Past Medical History / Comment(s): breast CA left breast -rec radiation tx, chronic back pain History of Any Multi-Drug Resistant Organisms: None Reported Past Surgical History: Back Surgery, Breast Surgery, Hysterectomy Additional Past Surgical History / Comment(s): left lumpectomy,mult back surgeries Past Anesthesia/Blood Transfusion Reactions: No Reported Reaction Additional Past Anesthesia/Blood Transfusion Reaction / Comment(s): no hx blood transfusion Past Psychological History: No Psychological Hx Reported Smoking Status: Former smoker Past Alcohol Use History: None Reported Past Drug Use History: None Reported - Past Family History Mother Family Medical History: Cancer Additional Family Medical History / Comment(s): colon CA General Exam - General Exam Comments Initial Comments: Visual Physical Exam Vital signs reviewed General: Well-appearing, nontoxic, no acute distress. Head: Normocephalic, atraumatic Eyes: PERRLA, EOMI ENT: Airway patent Chest: Nonlabored breathing Skin: No visual rash, normal skin tone Neuro: Alert and oriented 3 Musculoskeletal: No gross abnormalities Limitations: no limitations General appearance: alert, in no apparent distress Head exam: Present: atraumatic, normocephalic, normal inspection, other (contusion to left forehead) Eye exam: Present: normal appearance, PERRL, EOMI. Absent: scleral icterus, conjunctival injection, periorbital swelling Pupils: Present: normal accommodation ENT exam: Present: normal exam, normal oropharynx, mucous membranes moist Neck exam: Present: normal inspection. Absent: tenderness, meningismus, lymphadenopathy Respiratory exam: Present: normal lung sounds bilaterally, chest wall tenderness (left sided exquisitely tender). Absent: respiratory distress, wheezes, rales, rhonchi, stridor Cardiovascular Exam: Present: regular rate, normal rhythm, normal heart sounds. Absent: systolic murmur, diastolic murmur, rubs, gallop, clicks Extremities exam: Present: normal inspection, full ROM, normal capillary refill. Absent: tenderness, pedal edema, joint swelling, calf tenderness Neurological exam: Present: alert, oriented X3, CN II-XII intact Psychiatric exam: Present: normal affect, normal mood Skin exam: Present: warm, dry, intact, normal color. Absent: rash Course Vital Signs 06/04/23 16:56 Temperature 98.2 F Pulse Rate 98 Respiratory 18 Rate Blood Pressure 108/70 O2 Sat by Pulse 100 Oximetry Medical Decision Making - Medical Decision Making I performed the quick note portion of this chart. Electronically signed by Andrey Camacho PA-C Was pt. sent in by a medical professional or institution (CARLYLE Llanes, VENETIAN BLIND MACHINE OPERATOR, urgent care, hospital, or snf...) When possible be specific @ -Patient sent here by urgent care for evaluation of head injury and rib pain. Patient recently stopped taking Loveno 1 week ago. Did you speak to anyone other than the patient for history (EMS, parent, family, police, friend...)? What history was obtained from this source @ -No Did you review nursing and triage notes (agree or disagree)? Why? @ -I reviewed and agree with nursing and triage notes Were old charts reviewed (outside hosp., previous admission, EMS record, old EKG, old radiological studies, urgent care reports/EKG's, snf records)? Report findings @ -No old charts were reviewed Differential Diagnosis (chest pain, altered mental status, abdominal pain women, abdominal pain men, vaginal bleeding, weakness, fever, dyspnea, syncope, headache, dizziness, GI bleed, back pain, seizure, CVA, palpatations, mental health, musculoskeletal)? @ -Differential Headache:Migraine, tension, cluster, carbon monoxide, central venous thrombosis, pension karma temporal arteritis, acute closure glaucoma, intercranial hemorrhage, mastoiditis, sinusitis, head injury, this is not meant to be an all-inclusive list. EKG interpreted by me (3pts min.). @ -None X-rays interpreted by me (1pt min.). @ -Left ribs AP chest x-ray interpreted by me shows no acute process. CT interpreted by me (1pt min.). @ -CT brain C-spine interpreted by me negative for acute intracranial process. U/S interpreted by me (1pt. min.). @ -None done What testing was considered but not performed or refused? (CT, X-rays, U/S, labs)? Why? @ -None What meds were considered but not given or refused? Why? @ -None Did you discuss the management of the patient with other professionals (professionals i.e. , PA, VENETIAN BLIND MACHINE OPERATOR, lab, RT, psych nurse, vp digital marketing social media and crm, manager work, teacher, bank compliance officer, major case detective)? Give summary @ -No Was smoking cessation discussed for >3mins.? @ -No Was critical care preformed (if so, how long)? @ -No Were there social determinants of health that impacted care today? How? (Homelessness, low income, unemployed, alcoholism, drug addiction, transportation, low edu. Level, literacy, decrease access to med. care, detention, rehab)? @ -No Was there de-escalation of care discussed even if they declined (Discuss DNR or withdrawal of care, Hospice)? DNR status @ -No What co-morbidities impacted this encounter? (DM, HTN, Smoking, COPD, CAD, Cancer, CVA, ARF, Chemo, Hep., AIDS, mental health diagnosis, sleep apnea, morbid obesity)? @ -Patient recently stopped taking Lovenox. Was patient admitted / discharged? Hospital course, mention meds given and ro match-[employer]-n[employer]-she-[employer]ish [employer], prescriptions, significant lab abnormalities, going to OR and other pertinent info. @ -Discharge. Patient is a 77-year-old female presented to the ER with chief complaint of a fall. Patient sent here by urgent care for evaluation of head injury and rib pain as she stopped taking Lovenox 1 week ago. Patient denies any chest pain, shortness of breath, dizziness, lightheadedness prior to fall. Patient reports she tripped over an ottoman. History and physical exam were completed. Vitals stable. Patient in no signs of acute distress. No acute neurological findings on exam. Contusion to left forehead. Patient was exquisitely tender to left chest wall. No evidence of flail chest. CT brain was completed due to recent blood thinner use. Imaging completed in the ER negative for acute process. Results discussed with patient, all questions answered. I instructed patient on incentive spirometry use and to use once per hour. Patient discharged with incentive spirometer. Advised [id number] Tylenol Motrin for pain control. Return parameters were discussed. Patient will be discharged in stable condition with follow-up to PCP. Patient expressed understanding and agreement with care plan. Undiagnosed new problem with uncertain prognosis? @ -No Drug Therapy requiring intensive monitoring for toxicity (Heparin, Nitro, Insulin, Cardizem)? @ -No Were any procedures done? @ -No Diagnosis/symptom? @ -Rib contusion/forehead contusion/fall Acute, or Chronic, or Acute on Chronic? @ -Acute Uncomplicated (without systemic symptoms) or Complicated (systemic symptoms)? @ -Uncomplicated Side effects of treatment? @ -No Exacerbation, Progression, or Severe Exacerbation? @ -No Poses a threat to life or bodily function? How? (Chest pain, USA, MS, pneumonia, PE, COPD, DKA, ARF, appy, cholecystitis, CVA, Diverticulitis, Homicidal, Suicidal, threat to staff... and all critical care pts) @ -No - Radiology Data Radiology results: report reviewed, image reviewed Disposition Clinical Impression: Fall, Rib contusion, Scalp hematoma Disposition: HOME SELF-CARE Condition: Stable Instructions (If sedation given, give patient instructions): How to Use an Incentive Spirometer (ED), Fall Prevention for Older Adults (ED) Additional Instructions: Please use incentive spirometer once per hour. Please follow-up with PCP in the next 1 to 2 days. You may take atep-uip-hibrnla Tylenol and Motrin for pain control. Return to the ER for any new or worsening symptoms. Is patient prescribed a controlled substance at d/c from ED?: No Referrals: Stephanie Francisco MD [Primary Care Provider] - 1-2 days Time of Disposition: 18:41
[2023-06-04 17:04] VITALS: BP 108/70; PULSE 98; RESP 18; TEMP 98.2
--- NOTE | 2023-06-04 17:36 | CT ---
EXAMINATION TYPE: CT brain cspine wo con CT DLP: 1418.5 mGycm, Automated exposure control for dose reduction was used. DATE OF EXAM: 06/04/2023 5:23 PM COMPARISON: None. CLINICAL INDICATION:Female, 77 years old with history of head injury on thinners; Head injury on thin ners. TECHNIQUE: Brain: Multiple axial CT images of the brain were obtained without IV contrast. Cspine: Axial CT images from the skull base to the inferior aspect of T2 we obtained without intraven ous contrast. Coronal and sagittal reformatted images were also reviewed. FINDINGS: Brain: Extra-axial spaces: No abnormal extra-axial fluid collections. Ventricular system: Within normal limits Cerebral parenchyma: No acute intraparenchymal hemorrhage or mass effect. The kumar-white junction is well differentiated. Cerebellum: Unremarkable. Mass effect: No evidence of midline shift. Intracranial vasculature: Atherosclerotic calcifications of the intracranial vessels. Soft tissues: Normal. Calvarium/osseous structures: No depressed skull fracture. Paranasal sinuses and mastoid air cells: Clear. Visualized orbits: Bilateral aphakia Cervical spine: Fracture: None. Osseous structures: Unremarkable Vertebral alignment: Within normal limits. Spinal canal/Neural Foramina: No evidence of significant spinal canal narrowing. No evidence for sign ificant neural foraminal stenosis. Neck soft tissues: Prevertebral soft tissues are within normal limits. Other: The airway is patent. The lung apices are clear. Atherosclerosis of the carotid bifurcations. IMPRESSION: 1. No acute intracranial process. 2. No evidence of cervical spine fracture. 3. Mild multilevel degenerative disc disease.
--- NOTE | 2023-06-04 17:38 | XR ---
EXAMINATION TYPE: XR ribs LT w pa chest xray DATE OF EXAM: 06/04/2023 5:23 PM CLINICAL INDICATION:Female, 77 years old with history of fall; [facility] COMPARISON: 05/17/2018 TECHNIQUE: XR ribs LT w pa chest xray; Frontal and oblique views of the ribs with frontal chest radio graph. FINDINGS: The ribs have a normal appearance. No evidence of fracture. Overall, the lungs are clear. The cardiac silhouette is normal in size. The remaining osseous structures are intact. Extensive fi xation hardware throughout the spine. Hardware appears intact. Stimulator leads are present affecting the spine. Right upper quadrant course thickening). IMPRESSION: No acute osseous pathology.
== END 2023-06-04 19:15 | disposition home or self-care (01) ==
LOC: EC 16:45
DX: S20.211A Contusion of right front wall of thorax, initial encounter (principal); S00.03XA Contusion of scalp, initial encounter; I10 Essential (primary) hypertension; E11.9 Type 2 diabetes mellitus without complications; E78.5 Hyperlipidemia, unspecified; Z87.891 Personal history of nicotine dependence; Z79.899 Other long term (current) drug therapy; W01.0XXA Fall on same level from slipping, tripping and stumbling without subsequent striking against object, initial encounter
CPT/HCPCS: 70450; 72125; 99284

== ENCOUNTER → 2024-02-18 | Outpatient (CLI) | payer MEDICARE ==
[~2024-02-18] MED LIST changes: -LACTATED RINGERS 1,000 ML IV SCH; +REGADENOSON 0.4 MG/5 ML SYRINGE IV ONE
[2024-02-18 10:01] LABS: African American GFR (CKD) 74 (>60 ml/min/1.73 sqM); Blood Urea Nitrogen 20 mg/dL (7-17); Non-African American GFR(CKD) 64 (>60 ml/min/1.73 sqM)
--- NOTE | 2024-02-18 11:09 | CA ---
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 I65.23 STENOSIS ICD-10 Codes: Patient History: CHEST PAIN, PALPITATIONS, DIABETIC, HYPERCHOLESTEROLEMIA, PRIOR SMOKER, Medications: Meds past 24 hrs: Pretest Chest Pain: STRESS TEST Lexiscan Protocol Exercise Duration (min:sec): 02:[address] Depressions (mm): Angina Score: Conrad Score: Resting HR (bpm): 63 Peak HR (bpm): 97 Resting BP (mmHg): 111 / 70 Peak BP (mmHg): 111 / 65 MPHR: 144 Target HR: 122 % MPHR: 67 METS: 1.0 Total Dose: Peak Dose: Atropine: Double Product: 07883 BP Response: Stress Termination: INFUSION COMPLETE Stress Symptoms: CHEST HEAVINESS DURING INFUSION Stress Summary: ECG ANALYSIS Resting ECG: Normal sinus rhythm normal axis normal intervals Stress ECG: Patient was given intravenous Lexiscan as per protocol did not have significant ST segment depression CONCLUSIONS Negative stress test by EKG criteria Cardiolite portion of the stress test will be reported separate Dr. Alcon Andrews MD (Electronically Signed) Final Date: 18 February 2024 11:08
--- NOTE | 2024-02-18 11:45 | CT ---
EXAMINATION TYPE: CT angio chest DATE OF EXAM: 02/18/2024 COMPARISON: None CLINICAL INDICATION: Female, 78 years old with history of I20.0 UNSTABLE ANGINA I65.23 STENOSIS; PHH, CHEST PAIN AND SOB 6 WEEKS AGO TECHNIQUE: CTA scan of the thorax is performed with IV Contrast, patient injected with 100 mL of Isovue 370, pul monary embolism protocol. 3-D postprocessing was performed. CT DLP: [address] CTDI: mGy Automated exposure control for dose reduction was used. FINDINGS: There is satisfactory opacification of the pulmonary arterial circulation there are no filling defect s to suggest pulmonary embolism. There are single bilateral sub-4 mm pulmonary nodules. There is no airspace consolidation or abnormal interstitial density The great vessels of the chest are normal and no mediastinal, hilar or axillary adenopathy. There is a moderate hiatal hernia There is no pleural effusion or pneumothorax. Limited scanning through the upper abdomen reveals no gross abnormality. There are postsurgical [place] es involving the dorsal spine but no focal osseous lesions are seen. IMPRESSION: 1. No pulmonary embolism. 2. Single bilateral sub-4 mm pulmonary nodules. 3. No acute cardiopulmonary disease. [facility], , 02/18/2024 11:42 AM
--- NOTE | 2024-02-18 13:01 | US ---
EXAMINATION TYPE: US carotid duplex BILAT DATE OF EXAM: 02/18/2024 COMPARISON: NONE CLINICAL INDICATION: Female, 78 years old with history of I65.23 CAROTID STENOSIS; stenosis Medically necessarily indication *REQUIRED: I65.- Occlusion/stenosis of specified precerebral artery , specified laterality TECHNIQUE: Grayscale, color Doppler and spectral Doppler evaluation of the bilateral carotid systems and vertebral arteries.Indirect Doppler criteria was utilized. FINDINGS: EXAM MEASUREMENTS: RIGHT: Peak Systolic Velocity (PSV) cm/sec ----- Right CCA: 82.3 ----- Right ICA: 107.0 ----- Right ECA: 86.6 ICA/CCA ratio: 1.3 RIGHT: End Diastole cm/sec ----- Right CCA: 27.0 ----- Right ICA: 53.2 ----- Right ECA: 35.7 LEFT: Peak Systolic Velocity (PSV) cm/sec ----- Left CCA: 83.6 ----- Left ICA: 112.5 ----- Left ECA: 65.1 ICA/CCA ratio: 1.3 LEFT: End Diastole cm/sec ----- Left CCA: 30.5 ----- Left ICA: 47.8 ----- Left ECA: 0.0 VERTEBRALS (direction of flow): Right Vertebral: Antegrade Left Vertebral: Antegrade Rhythm: Normal BREADING MACHINE TENDER NOTES: Mild atherosclerotic IMPRESSION: Right: Less than 50% stenosis of the carotid bifurcation. Normal (no stenosis)=ICA PSV < 125 cm/s: ra janice < 2.0: ICA EDV<40 cm/s. Left: Less than 50% stenosis of the carotid bifurcation. Normal (no stenosis)=ICA PSV < 125 cm/s: rat io < 2.0: ICA EDV<40 cm/s. Criteria for Assigning % of Stenosis / Diameter reduction (Estimation based on the indirect measurements of the internal carotid artery velocities (ICA PSV). 1. Normal (no stenosis)=ICA PSV < 125 cm/s: ratio < 2.0: ICA EDV<40 cm/s. 2. Less than 50% stenosis=ICA PSV < 125 cm/s: ratio < 2.0: ICA EDV<40 cm/s. 3. 50 to 69% stenosis=ICA PSV of 125 to 230 cm/s: ration 2.0 ? 4.0: ICA EDV 40-100 cm/s. 4. Greater than 70% stenosis to near occlusion= ICA PSV > 230 cm/s: ratio > 4.0: ICA EDV > 100 cm/s. 5. Near occlusion= ICA PSV velocities may be low or undetectable: variable ratio and ICA EDV. 6. Total occlusion=unable to detect flow. [facility], , 02/18/2024 12:59 PM
--- NOTE | 2024-02-18 16:44 | NM ---
EXAMINATION TYPE: NM stress lexiscan cardiolite DATE OF EXAM: 02/18/2024 COMPARISON: NONE CLINICAL INDICATION: Female, 78 years old with history of I20.0 UNSTABLE ANGINA I65.23 STENOSIS; TECHNIQUE: After the intravenous administration of 8 mCi Tc 99m Sestamibi - Cardiolite resting SPECT images acquired 50 minutes post injection. The patient received 0.4mg Lexiscan, 25.5 mCi Tc 99m Sestamibi - Stress images obtained [address] injection FINDINGS: Review of stress and rest SPECT images demonstrates fixed decreased perfusion along the septal wall, possible attenuation artifact. No correlating defect on the polar maps. Otherwise, no discrete revers ibility is seen. Gated analysis shows normal wall motion with an estimated left ventricular ejection fraction of 73 %. TID is calculated at 0.71, within normal limits. IMPRESSION: 1. Fixed perfusion defect along the septal wall favored attenuation artifact. Correlate for any histo ry of old infarct of the septal wall. 2. No discrete reversibility is seen. [facility], , 02/18/2024 4:42 PM
--- NOTE | 2024-02-18 17:15 | CA ---
Transthoracic Echo Report Name: Deepthi Echavarria Age: 78 Gender: F : 1945 Exam Date: 02/18/2024 11:27 Exam Location: [facility] Ht (in): 64 Wt (lb): 140 Ordering Physician: Stephanie Francisco MD Attending/Referring Phys: Audio Visual Project Manager Dilcia Biswas RDCS Procedure CPT: Indications: I20.0 UNSTABLE ANGINA I65.23 STENOSIS Cardiac Hx: Technical Quality: Good Contrast 1: Total Dose (mL): Contrast 2: Total Dose (mL): MEASUREMENTS (Male / Female) Normal Values 2D ECHO LV Diastolic Diameter PLAX 4.2 cm 4.2 - 5.9 / 3.9 - 5.3 cm LV Systolic Diameter PLAX 2.1 cm IVS Diastolic Thickness 0.8 cm 0.6 - 1.0 / 0.6 - 0.9 cm LVPW Diastolic Thickness 0.9 cm 0.6 - 1.0 / 0.6 - 0.9 cm LV Relative Wall Thickness 0.4 LVOT Diameter 2.1 cm LV Diastolic Volume MOD BP 69.0 cm??? 67 - 155 / 56 - 104 cm??? LV Systolic Volume MOD BP 27.7 cm??? 22 - 58 / 19 - 49 cm??? LV Ejection Fraction MOD BP 59.8 % >= 55 % LV Cardiac Index MOD BP 1743.8 cm???/min???m??? LV Diastolic Volume MOD 4C 71.3 cm??? LV Systolic Volume MOD 4C 29.5 cm??? LV Ejection Fraction MOD 4C 58.7 % LV Cardiac Index MOD 4C 1769.7 cm???/min???m??? LV Diastolic Length 4C 7.0 cm LV Systolic Length 4C 6.2 cm LV Diastolic Volume MOD 2C 65.7 cm??? LV Systolic Volume MOD 2C 23.2 cm??? LV Ejection Fraction MOD 2C 64.7 % LV Cardiac Index MOD 2C 1796.8 cm???/min???m??? LV Diastolic Length 2C 6.9 cm LV Systolic Length 2C 5.5 cm LA Volume 34.1 cm??? 18 - 58 / 22 - 52 cm??? LA Volume Index 20.0 cm???/m??? 16 - 28 cm???/m??? Ascending Aorta Diameter 3.5 cm DOPPLER AV Peak Velocity 119.3 cm/s AV Peak Gradient 5.7 mmHg AV Mean Velocity 79.1 cm/s AV Mean Gradient 2.8 mmHg AV Velocity Time Integral 24.8 cm LVOT Peak Velocity 88.9 cm/s LVOT Peak Gradient 3.2 mmHg LVOT Velocity Time Integral 17.8 cm LVOT Stroke Volume 61.0 cm??? LVOT Stroke Volume Index 36.3 ml/m??? LVOT Cardiac Index 2580.7 cm???/min???m??? AV Area Cont Eq vti 2.5 cm??? AV Area Cont Eq pk 2.6 cm??? MV Area PHT 3.9 cm??? Mitral E Point Velocity 65.1 cm/s Mitral A Point Velocity 57.9 cm/s Mitral E to A Ratio 1.1 MV Deceleration Time 194.7 ms TR Peak Velocity 215.1 cm/s TR Peak Gradient 18.5 mmHg Right Atrial Pressure 5.0 mmHg Pulmonary Artery Systolic Pressu 23.5 mmHg Right Ventricular Systolic Press 23.5 mmHg PV Peak Velocity 83.2 cm/s PV Peak Gradient 2.8 mmHg FINDINGS Left Ventricle Left ventricular ejection fraction is estimated at 55-60 %. Left ventricular cavity size normal. Left ventricular wall thickness normal. No obvious regional wall motion abnormalities. Right Ventricle Normal right ventricular size and function. Unable to estimate the right ventricular systolic pressure. Right Atrium Normal right atrial size. Left Atrium Normal left atrial size. Mitral Valve Structurally normal mitral valve. No evidence for mitral valve prolapse. No mitral stenosis. Mild mitral regurgitation. Aortic Valve Trileaflet aortic valve. No aortic valve stenosis or regurgitation. Tricuspid Valve Structurally normal tricuspid valve. No tricuspid stenosis. Mild tricuspid regurgitation. Pulmonic Valve Structurally normal pulmonic valve. No pulmonic stenosis. Mild pulmonic regurgitation. Pericardium No pericardial effusion. Aorta Normal size aortic root and proximal ascending aorta. CONCLUSIONS Normal LV systolic function Mild tricuspid regurgitation Previewed by: Dr. Alcon Andrews MD (Electronically Signed) Final Date: 18 February 2024 17:14
== END | disposition home or self-care (01) ==
LOC: RADNMMAIN 08:01
PROVIDERS: ATTEND Internal Medicine
DX: I20.0 Unstable angina (principal); I65.23 Occlusion and stenosis of bilateral carotid arteries; E11.9 Type 2 diabetes mellitus without complications; E78.00 Pure hypercholesterolemia, unspecified; I08.1 Rheumatic disorders of both mitral and tricuspid valves; Z87.891 Personal history of nicotine dependence
CPT/HCPCS: 93017; 93306; 82565; 84520; 93880; 71275; 78452; A9500; J2785; Q9967